=== PATIENT | female | born 1945 | race Caucasian/White ===

== ENCOUNTER → 2016-11-07 | Outpatient (CLI) | payer MEDICARE ==
--- NOTE | 2016-11-10 08:51 | MM ---
Reason for exam: screening (asymptomatic). Last mammogram was performed 1 year and 2 months ago. History: Patient is postmenopausal. Physical Findings: Nurse did not find any significant physical abnormalities on exam. MG Screening Mammo w CAD Bilateral CC and MLO view(s) were taken. Prior study comparison: September 11, 2015, bilateral MG screening mammo w CAD. November 15, 2012, bilateral digital screening mammo w/CAD. The breast tissue is heterogeneously dense. This may lower the sensitivity of mammography. Finding: There are typically benign vascular, round calcifications in both breasts. Asymmetric breast tissue in the right breast is stable. Grouped indeterminate calcifications in the right portion slight outer aspect. New finding and increase in number of calcifications since September 11, 2015 and November 15, 2012. ASSESSMENT: Incomplete: need additional imaging evaluation, BI-RAD 0 RECOMMENDATION: Special view mammogram of the right breast. If lesion persists on supplemental views, image directed ultrasound is recommended. [facility] will attempt to contact patient to return for supplemental views and ultrasound if indicated.
== END | disposition home or self-care (01) ==
LOC: RADMAMWWP 15:11
PROVIDERS: ATTEND Family Medicine
DX: Z12.31 Encounter for screening mammogram for malignant neoplasm of breast (principal)

== ENCOUNTER → 2016-11-12 | Outpatient (CLI) | payer MEDICARE ==
--- NOTE | 2016-11-12 08:19 | MM ---
Reason for exam: additional evaluation requested from abnormal screening. Last mammogram was performed less than 1 month ago. History: Patient is postmenopausal. Physical Findings: Nurse did not find any significant physical abnormalities on exam. MG Work Up Mamm w CAD RT CC and MLO view(s) were taken of the right breast. Prior study comparison: November 07, 2016, bilateral MG screening mammo w CAD. September 11, 2015, bilateral MG screening mammo w CAD. March 17, 2014, bilateral MG diagnostic mammo w CAD SARAH. The breast tissue is heterogeneously dense. This may lower the sensitivity of mammography. Small group of round appearing calcifications in the posterior lower outer quadrant. These can be reassessed at short interval follow up. These results were verbally communicated with the patient and result sheet given to the patient on 11/12/16. ASSESSMENT: Probably benign, BI-RAD 3 RECOMMENDATION: Follow-up diagnostic mammogram of the right breast in 6 months.
== END | disposition home or self-care (01) ==
LOC: RADMAMWWP 07:26
PROVIDERS: ATTEND Family Medicine
DX: R92.8 Other abnormal and inconclusive findings on diagnostic imaging of breast (principal)

== ENCOUNTER → 2017-11-25 | Outpatient (CLI) | payer MEDICARE ==
--- NOTE | 2017-11-25 11:39 | MM ---
Reason for exam: additional evaluation requested from prior study. Last mammogram was performed 1 year ago. History: Patient is postmenopausal. Physical Findings: Nurse did not find any significant physical abnormalities on exam. MG 3D Diag Mammo W/Cad SARAH Bilateral CC and MLO view(s) were taken. Prior study comparison: November 12, 2016, right breast MG work up mamm w CAD RT. November 07, 2016, bilateral MG screening mammo w CAD. The breast tissue is heterogeneously dense. This may lower the sensitivity of mammography. Finding: There is a 8 mm equal density (isodense), circumscribed round mass located 6 cm from the nipple in the upper outer quadrant, middle position of the left breast. Right breast stable. These results were verbally communicated with the patient and result sheet given to the patient on 11/25/17. ASSESSMENT: Incomplete: need additional imaging evaluation, BI-RAD 0 RECOMMENDATION: Ultrasound of the left breast.
--- NOTE | 2017-11-25 11:41 | USB ---
Reason for exam: additional evaluation requested from abnormal screening. History: Patient is postmenopausal. US Breast Limited LT Left limited breast ultrasound including focal area of concern, retroareolar and axilla demonstrates a 1.2 x 0.8 x 1.0cm oval, hypoechoic lesion at 2 o'clock, questionable lymph node, solid appearing. These results were verbally communicated with the patient and result sheet given to the patient on 11/25/17. ASSESSMENT: Suspicious, BI-RAD 4 RECOMMENDATION: Ultrasound core biopsy of the left breast. Called Dr. Argueta with mammographic findings and has scheduled an appointment for the patient for 12/03/17 at 10:[address] Buckley. Biopsy scheduled for 12/07/17 at 12:20. PRELIMINARY REPORT CALLED AND FAXED TO DR. BUCKLEY ON 11/25/17.
== END | disposition home or self-care (01) ==
LOC: RADMAMWWP 07:00
PROVIDERS: ATTEND Family Medicine
DX: R92.8 Other abnormal and inconclusive findings on diagnostic imaging of breast (principal)
CPT/HCPCS: 77066; 76642; G0279; 77062

== ENCOUNTER → 2017-12-03 | Outpatient (CLI) | payer MEDICARE ==
[2017-12-03 11:02] VITALS: BP 182/86; PULSE 83; BMI 23.8
--- NOTE | 2017-12-03 11:31 | P.GSHP ---
History of Present Illness H&P Date: 12/03/17 The patient is a 72-year-old white female who is status post mammogram of the breast on 11/25/2017 after which it was recommended she undergo an ultrasound of the left breast secondary to an area of concern noted in the mammogram. This was an 8 mm equal density circumscribed round mass 6 cm from the nipple in the upper outer quadrant middle position of the left breast. The right breast was felt to be stable. On ultrasound a 1.2 cm hypoechoic lesion was noted at 2: 00 this was questionably a lymph node an ultrasound core biopsy was recommended. The patient denies any dominant masses or nodules of concern in either breast. This was found on a routine mammogram. The patient has no nipple discharge or skin changes. The patient has not had any trauma to her breast. The patient has no complaints of any warmness or infection in the breast. family history: Maternal grandfather: Lung cancer he was a smoker Past surgical history: 1. tubaligation past medical history: 1. HTN Hormonal History: Menarche: 14 Pregnancies: For first at 23 did not breast feed Menopause: 55 control pills: Approximately 10 years Hormones:none Social Hisotry: smoke: none alcohol: occasional drugs: none - Constitutional Constitutional: Denies chills, Denies fever - EENT Eyes: denies blurred vision, denies pain Ears: deny: decreased hearing, tinnitus Ears, nose, mouth and throat: Denies headache, Denies sore throat - Breasts Breasts: bilateral: as per HPI - Cardiovascular Cardiovascular: Denies chest pain, Denies shortness of breath - Respiratory Respiratory: Denies cough, Denies 7 - Gastrointestinal Gastrointestinal: Denies abdominal pain, Denies diarrhea, Denies nausea, Denies vomiting - Genitourinary (Female) Genitourinary: Denies dysuria, Denies hematuria - Menstruation Menstruation: Reports postmenopausal - Musculoskeletal Musculoskeletal: Denies myalgias - Integumentary Integumentary: Denies pruritus, Denies rash - Neurological Neurological: Denies numbness, Denies weakness - Psychiatric Psychiatric: Denies anxiety, Denies depression - Endocrine Endocrine: Denies fatigue, Denies weight change - Hematologic/Lymphatic Comment: Baby aspirin - Allergic/Immunologic Comment: none Past Medical History Past Medical History: Hypertension History of Any Multi-Drug Resistant Organisms: None Reported Past Surgical History: Tubal Ligation Past Anesthesia/Blood Transfusion Reactions: No Reported Reaction Past Psychological History: No Psychological Hx Reported Smoking Status: Never smoker Past Alcohol Use History: None Reported Past Drug Use History: None Reported - Past Family History Mother Family Medical History: Hypertension Father Family Medical History: COPD Medications and Allergies Home Medications Medication Instructions Recorded Confirmed Type Aspirin [Children's Aspirin] 81 mg PO DAILY 12/02/17 12/03/17 History Lisinopril [Zestril] 5 mg PO DAILY 12/02/17 12/03/17 History Multivitamins, Thera [Multivitamin 1 tab PO DAILY 12/02/17 12/03/17 History (formulary)] Allergies Allergy/AdvReac Type Severity Reaction Status Date / Time No Known Allergies Allergy Verified 12/02/17 09:30 Surgical - Exam Vital Signs Pulse BP Pulse Ox 83 182/86 100 12/03/17 10:54 12/03/17 10:54 12/03/17 10:54 - General well developed, well nourished, no distress - Eyes normal ocular movement, no icteric - ENT no hearing loss, no congestion - Neck no masses, trachea midline - Respiratory normal respiratory effort, clear to auscultation - Cardiovascular Rhythm: regular Heart Sounds: normal: S1, S2 - Abdomen Abdomen: soft, non tender, no guarding, no rigid, no rebound - Neurologic no disoriented, no combative - Musculoskeletal normal gait, normal posture - Psychiatric oriented to time, oriented to person, oriented to place, speech is normal, memory intact breast examination: Right breast: Multiple positional exam no dominant masses or nodules of concern Right axilla: No adenopathy of concern Left breast: No dominant masses or nodules of concern of multiple positional exam Left axilla: No adenopathy of concern Results Results of mammogram and ultrasound reviewed Assessment and Plan Assessment: Impression: 1. Radiographic abnormality left breast this is nonpalpable 2. Hypertension Plan: 1. Ultrasound-guided core biopsy of area of concern in the left breast 2. Medical management of hypertension 3. Follow-up 1 week after ultrasound core biopsy of the left breast CC: Dr. Argueta
== END | disposition home or self-care (01) ==
LOC: WWCWWP 09:59
PROVIDERS: ATTEND Surgery
DX: Z53.9 Procedure and treatment not carried out, unspecified reason (principal)

== ENCOUNTER → 2017-12-07 | Day surgery (SDC) | payer MEDICARE ==
[2017-12-07 11:08] VITALS: RESP 16; TEMP 97.9; BMI 25.0
[2017-12-07 13:27] VITALS: BP 175/75; PULSE 93
--- NOTE | 2017-12-07 15:12 | USB ---
EXAMINATION TYPE: US biopsy breast VAD LT, Postbiopsy MG diagnostic mammo LT wo CAD DATE OF EXAM: 12/07/2017 CLINICAL HISTORY: 72-year-old female R92.8 ABN MAMMO. TECHNIQUE: Ultrasound guided core biopsy of left breast. COMPARISON: 11/25/2017 and 12/07/2017 FINDINGS: The procedure of ultrasound guided core biopsy was explained to the patient. Benefits, alt ernatives, and risks were discussed. An informed consent was then obtained. The patient was placed in supine positioning for imaging and for the procedure. The overlying skin w as prepped and draped in usual sterile fashion. Lidocaine buffered with bicarbonate was used as anes thetic into the skin and subcutaneous tissue up to area of concern in the 2:00 left breast. Under ultrasound guidance, a 13-gauge vacuum-assisted mammotome Elite biopsy gun device was used to o btain 5 core samples. Following this, a coil clip was left in lesion. Note that this was a solid lesion on biopsy. The patient tolerated the procedure well without any immediate complication. The patient was kept in the radiology department for short stay after the procedure and then discharged home in stable condi tion. Post procedure mammogram shows the coil clip at the site of 2:00 mammographic mass. IMPRESSION: Successful, uncomplicated ultrasound guided core biopsy of the 2:00 left breast mass; full pathology results to follow.
== END ==
LOC: RADUSWWP 10:50
PROVIDERS: ATTEND Surgery
DX: C50.412 Malignant neoplasm of upper-outer quadrant of left female breast (principal)
CPT/HCPCS: 77065; 19083; A4648; J2001; 88305; 88342

== ENCOUNTER → 2017-12-11 | Outpatient (CLI) | payer MEDICARE ==
[2017-12-11 09:21] VITALS: BP 172/70; PULSE 92; RESP 12; TEMP 98; BMI 24.1
--- NOTE | 2017-12-11 09:51 | P.PN ---
Progress Note - Text Progress Note Date: 12/11/17 The patient is a 72-year-old white female who is status post ultrasound-guided core biopsy of an area of concern in the left breast. Pathology revealed an infiltrating poorly differentiated adenocarcinoma grade 3. The lesion is in the 2 o'clock position of the left breast upper outer quadrant. It is believed to be a T1 N0 M0 lesion. ER/PA and HER-2/jessica status are pending. The patient has no complaints related to the procedure. Physical exam: Biopsy site clean and dry no evidence of infection or hematoma I have had a long discussion with the patient and her regarding treatment options. These include mastectomy with sentinel node biopsy possible axillary node dissection, versus lumpectomy sentinel node biopsy possible axillary node dissection. They have opted for a lumpectomy with a sentinel node biopsy possible axillary node dissection. The risk and benefits of the procedure been discussed with the patient and her . I discussed with them that if margins are positive and may be necessary to do a reexcision. They understand the risks and benefits and wished to proceed. Impression: 1. 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 History of hypertension Plan: 1. Left breast needle localization lumpectomy, sentinel node injection with sentinel node biopsy Cc: Dr. Carter
== END ==
LOC: WWCWWP 09:06
PROVIDERS: ATTEND Surgery
DX: Z53.9 Procedure and treatment not carried out, unspecified reason (principal)

== ENCOUNTER → 2017-12-29 | Day surgery (SDC) | payer MEDICARE ==
[2017-12-23 14:40] VITALS: BMI 21.9
[~2017-12-29] MED LIST: ALPRAZolam 0.5 MG TAB PO PRN; DEXAMETHASONE SOD PHOSPHATE 10 MG/ML 1 ML VIAL IV ONE; HEPARIN SODIUM,PORCINE 5,000 UNIT/ML 1 ML VIAL SQ ONE; HYDROmorphone (PF) 1 MG/ML ONE; LACTATED RINGERS 1,000 ML IV ONE; LACTATED RINGERS 1,000 ML IV SCH; LIDOCAINE 1% 20 ML VIAL (10MG/ML) FOR IV START INTRADERMA PRN; LIDOCAINE 1% INJ 10MG/ML (20 ML MDV) ONE; LIDOCAINE 1% INJ 10MG/ML (20 ML MDV) SQ ONE; MIDAZOLAM 2 MG/2 ML VIAL IV PRN; MIDAZOLAM 2 MG/2 ML VIAL ONE; ONDANSETRON 4 MG/2 ML VIAL IVP ONE; PROPOFOL 10 MG/ML 20 ML VIAL IV ONE; Pre Op ABX Message 1 EACH MISC MISCELLANE ONE; SODIUM BICARB 4% 5 ML VIAL (0.48 MEQ/ML) MISCELLANE ONE; SODIUM CHLORIDE 0.9% 50 ML with ceFAZolin 2,000 MG IV ONE; SUCCINYLCHOLINE CHLORIDE 100 MG/5 ML SYR IV ONE; ePHEDrine SULFATE/0.9% NACL/PF 50 MG/5 ML SYRINGE IV ONE; fentaNYL (PF) 50 MCG/ML 2 ML AMP IV PRN; fentaNYL (PF) 50 MCG/ML 2 ML AMP ONE
[2017-12-29 10:38] VITALS: RESP 16
--- NOTE | 2017-12-29 13:41 | NM ---
EXAMINATION TYPE: NM sentinel node injection DATE OF EXAM: 12/29/2017 COMPARISON: 12/07/2017 HISTORY: 72 year-old female with left breast cancer TECHNIQUE AND FINDINGS: The procedure of sentinel lymph node injection was explained to the patient. The benefits, alternatives, and risks were discussed. An informed consent was then obtained. Overlying skin is cleaned with sterile alcohol. Lidocaine buffered with bicarbonate was used as anes thetic into the skin and subcutaneous tissue surrounding the nipple. Following this, 526 uCi technet ium 99m Tilmanocept (Lymphoseek) was injected in the upper outer periareolar region. The patient tolerated the procedure well without any immediate complication. The patient was kept in the radiology department for short stay after the procedure and then taken to surgery for surgical p rocedure what is presumed intraoperative gamma probe will be used for sentinel lymph node detection. IMPRESSION: Left breast radiotracer injection for sentinel node localization as above.
--- NOTE | 2017-12-29 15:02 | P.OP ---
Date of Procedure: 12/29/17 Preoperative Diagnosis: Left breast cancer Postoperative Diagnosis: Same Procedure(s) Performed: Left breast sentinel node biopsy, needle localization lumpectomy with oncoplastic tissue transfer and placement of Biozorb Implants: Biozorb Anesthesia: ALINE Surgeon: Alina Buckley Estimated Blood Loss (ml): 10 IV fluids (ml): 500 Pathology: other ([place] node, lumpectomy tissue left breast) Condition: stable Disposition: PACU Indications for Procedure: Left breast cancer Operative Findings: The patient is a 72-year-old white female who underwent a core biopsy which was positive for malignancy in the left breast. She opted for a needle localization and lumpectomy, and sentinel node biopsy. The patient was taken to the operating room and the neoprobe was utilized to identify radioactivity in the left axilla. After we had identified this the left breast and axilla were prepped and draped in a sterile fashion. Secondary to the radioactivity blue dye was not injected. The axilla was approached initially. The area of increased radioactivity was identified and incision was made at the site. Careful dissection revealed a radioactive lymph node. The 10 second count on the lymph node was 17,147, the background count at 10 seconds was 28. No palpable adenopathy of concern was otherwise identified. The radioactive lymph node was sent for permanent section evaluation to pathology. Following this after assured that hemostasis was attained the deep tissues were closed using 3-0 Vicryl. The skin was closed closed using 4-0 Monocryl. The area of the breast was approached. An incision was made and carried down to the hook of the needle. Surrounding tissue was excised. The specimen was painted and sent for radiograph graphic evaluation. The clip was present in the specimen but they stated it was close to a margin. Therefore new margins were obtained. It should be noted that the posterior margin was onto the muscle of the chest wall. Anteriorly skin was taken. New medial lateral superior and inferior margins were obtained. The external margins of these new margins were painted for orientation. These were sent to pathology. The wound was irrigated and we were noted to have good hemostasis. The tissue was mobilized approximately 3 x 2 cm inferiorly and 3 x 2 cm superiorly. The wound was measured and a 2 x 3 [address] was chosen to place in the defect. This was placed and secured using 3-0 Vicryl suture. The tissue was closed over the biozorb. The subcutaneous tissue was closed using 3-0 Vicryl suture. The skin was closed using a 4-0 Monocryl. All instrument and sponge counts were correct at the end of the case. Patient tolerated procedure in stable condition.
--- NOTE | 2017-12-29 15:04 | P.NAPBC ---
NAPBC Queries - NAPBC Queries Was patient's case review presented at [facility] tumor board? If no, comment.: Yes Was patient's pathology reviewed at [facility]? If no, comment.: Yes Was breast conservation surgery offered? If no, comment.: Yes Was sentinel node biopsy offered? If no, comment.: Yes Was diagnosis confirmed by percutaneous core biopsy? If no, comment.: Yes If mastectomy patient, was a preop referral to a reconstructive surgeon offered? : No (not a mastectomy patient)
--- NOTE | 2017-12-29 15:06 | P.DS ---
Providers Attending physician: Alina Buckley Primary care physician: Ji Argueta Plan - Discharge Summary New Discharge Prescriptions: No Action Multivitamins, Thera [Multivitamin (formulary)] 1 tab PO QAM Lisinopril [Zestril] 5 mg PO QAM Aspirin [Children's Aspirin] 81 mg PO QAM Discharge Medication List Aspirin [Children's Aspirin] 81 mg PO QAM 12/02/17 [History] Lisinopril [Zestril] 5 mg PO QAM 12/02/17 [History] Multivitamins, Thera [Multivitamin (formulary)] 1 tab PO QAM 12/02/17 [History] Follow up Appointment(s)/Referral(s): Alina Buckley MD [STAFF PHYSICIAN] - 1 Week Activity/Diet/Wound Care/Special Instructions: Do not drive today patient may shower after 48 hours Wear bra at all times unless in shower until seen by DR. Hays Discharge Disposition: HOME SELF-CARE
[2017-12-29 15:20] VITALS: TEMP 97.3
[2017-12-29 17:03] VITALS: BP 150/85; PULSE 97
--- NOTE | 2017-12-29 17:30 | MM ---
EXAMINATION TYPE: MG pre op needle loc LT, MG surgical specimen LT DATE OF EXAM: 12/29/2017 COMPARISON: 12/07/2017 CLINICAL HISTORY: 72-year-old female abnormal mammogram, biopsy proven left breast cancer. TECHNIQUE: Needle localization with wire placement and surgical excision of area of concern in the left breast. FINDINGS: The procedure of needle localization with wire placement and than surgical excision was explained to the patient. Benefits, alternatives, and risks were discussed. An informed consent was then obtained. The shortest pathway for procedure was chosen. Shortest pathway was a lateral approach. The overlying skin was prepped and draped in usual sterile fashion. Lidocaine buffered with bicarbonate was used as anesthetic into the skin and subcutaneous tissue up to the level of area of concern. A 7 cm needle was used. It was placed via a lateral approach under mammographic guidance. Subsequent 90 degrees mammogram show the needle to be in satisfactory position relative to the targeted area. At this point, wire was placed and the needle was withdrawn. The wire was fixed to patient's skin. Images were marked for surgeon. The patient tolerated the procedure well without any immediate complication. The patient was kept in the radiology department for short stay after the procedure and then taken to surgery for surgical excision. Targeted clip and wire are identified in specimen mammogram. The clip is entirely included in the specimen though along the margin of the specimen rather than centrally located. The patient was kept in hospital for short stay after the procedure and then discharged home in stable condition. IMPRESSION: Successful, uncomplicated needle localization with wire placement and surgical excision of biopsy-proven left breast cancer. Full pathology results to follow. Pathology Results: Malignant A. SENTINEL LYMPH NODE, BIOPSY: Lymph node positive for micrometastasis. CK7 and PAUL immunoperoxidase stains are confirmatory (controls appropriate). B. AXILLARY CONTENTS: Lymph node positive for isolated tumor cells. C. BREAST, LEFT, LUMPECTOMY: Invasive poorly differentiated ductal carcinoma, margins negative for malignancy. See Surgical Pathology Cancer Case Summary. D. BREAST, LEFT, EXTERNAL SURFACE, INFERIOR, EXCISION: Focal atypical lobular hyperplasia (ALH). Proliferative fibrocystic changes including focal usual type ductal hyperplasia. Negative for malignancy. E. BREAST, LEFT, EXTERNAL SURFACE, MEDIAL, EXCISION: Benign breast with fibrocystic changes including focal usual type ductal hyperplasia. F. 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 See Surgical Pathology Cancer Case Summary and Comment. G. BREAST, LEFT, EXTERNAL SURFACE, LATERAL, EXCISION: Benign breast with fibrocystic changes. H. BREAST, LEFT, NEW ANTERIOR MARGIN, EXCISION: Benign skin and subcutaneous tissue. Recommendation Surgical consult of the left breast. ARAMISD
== END | disposition home or self-care (01) ==
LOC: OR 10:17
PROVIDERS: ATTEND Surgery
DX: D05.12 Intraductal carcinoma in situ of left breast (principal); N60.92 Unspecified benign mammary dysplasia of left breast; I10 Essential (primary) hypertension; Z79.82 Long term (current) use of aspirin; Z79.899 Other long term (current) drug therapy; Z80.1 Family history of malignant neoplasm of trachea, bronchus and lung
CPT/HCPCS: 88342; 88307; 88341; 76098; 19281; 38792; 19301; 38525; A4648; A9520; J2250; J1644; J1100; J2405; J2001; J3010; J1170; J0690; J0330; J2704

== ENCOUNTER → 2018-01-08 | Outpatient (CLI) | payer MEDICARE ==
[2018-01-08 09:39] VITALS: BMI 23.3
--- NOTE | 2018-01-08 10:46 | P.PN ---
Progress Note - Text Progress Note Date: 01/08/18 The patient is a 72-year-old white female who presents for postoperative evaluation status post right breast lumpectomy and sentinel node biopsy. Pathology revealed a stage [id number] ER positive, UT negative, HER-2 positive tumor, this is grade 3. The tumor was completely excised however at the superior margin there is DCIS noted less than 1 mm from superior margin, additionally there is micrometastatic disease in one of the lymph nodes. The patient would prefer no further surgical intervention if possible and I discussed with her that we will talk to radiation oncology and medical oncology and with their input determine if she can be treated without further surgical intervention. Physical exam: The patient has ecchymosis of the lateral aspect of the breast with some ecchymosis at the midline sternal area which appears to be related to drapes placed at the time of surgery No evidence of infection No evidence of intraparenchymal hematoma Incision line areas appear to be clean and dry Lungs: Clear Heart: Regular rate and rhythm Impression: [id number] grade 3, ER positive, UT negative, HER-2 positive right breast cancer treated with lumpectomy and sentinel node biopsy 2. Patient would prefer no further surgical intervention if possible we'll discuss with radiation and medical oncology 3. Ecchymosis resolving Plan: 1. A point with medical oncology 2. Premarin with radiation oncology 3. Follow-up in 2 weeks CC:DR. Argueta
== END | disposition home or self-care (01) ==
LOC: WWCWWP 09:12
PROVIDERS: ATTEND Surgery
DX: Z53.9 Procedure and treatment not carried out, unspecified reason (principal)

== ENCOUNTER → 2018-01-22 | Outpatient (CLI) | payer MEDICARE ==
[2018-01-22 08:58] VITALS: BP 130/74; PULSE 85; RESP 12; TEMP 98.1; BMI 23.3
--- NOTE | 2018-01-22 09:44 | P.PN ---
Progress Note - Text Progress Note Date: 01/22/18 The patient is a 72-year-old white female status post left breast lumpectomy and sentinel node biopsy. Pathology revealed a stage [id number] ER positive, WI negative, HER-2 positive tumor which was grade 3. The tumor was completely excised however at the superior margin there was DCIS noted less than 1 mm from the superior margin. Additionally there was micrometastatic disease in one of the lymph nodes. The patient was seen by medical oncology and radiation oncology. Both feel that she does not need further surgical intervention. The patient is recommended from medical oncology to receive chemotherapy, immunotherapy, and hormonal therapy. Additionally she will need radiation therapy. The patient did develop some ecchymosis following her operative procedure which is resolving. The patient has no complaints at this time. Physical exam: Lungs: Clear Heart: Regular rate and rhythm Examination of the left breast resolving ecchymosis, some fullness in the upper outer quadrant area may be related to hematoma versus the Biozorb Impression: 1. [id number] ER+,WI-,HER2 -, Grade 3 right breast cancer, recommended by medical oncology to undergo chemotherapy, immunotherapy, and hormonal therapy 2. Patient to undergo radiation therapy 3. No need for further surgical resection at this time 4. Patient will need Mediport placement 5. Patient to follow up here in 3-4 months time CC: Dr. Argueta
== END ==
LOC: WWCWWP 08:30
PROVIDERS: ATTEND Surgery
DX: Z53.9 Procedure and treatment not carried out, unspecified reason (principal)

== ENCOUNTER → 2018-02-01 | Outpatient (CLI) | payer MEDICARE ==
--- NOTE | 2018-02-01 12:08 | ECHOF ---
Referral Reason:C50.412 Breast Ca / Z01.818 Pre chemo MEASUREMENTS -------- HEIGHT: 167.6 cm WEIGHT: 64.9 kg BP: IVSd: 1.1 cm (0.6 - 1.1) LVIDd: 3.1 cm (3.9 - 5.3) LVPWd: 1.1 cm (0.6 - 1.1) IVSs: 1.2 cm LVIDs: 1.7 cm LVPWs: 1.2 cm LAESV Index (A-L): 23.39 ml/m Ao Diam: 3.0 cm (2.0 - 3.7) AV Cusp: 2.2 cm (1.5 - 2.6) LA Diam: 2.3 cm (2.7 - 3.8) MV E Hiram: 0.71 m/s MV DecT: 229 ms MV A Hiram: 0.70 m/s MV E/A Ratio: 1.02 RAP: 5.00 mmHg RVSP: 10.60 mmHg FINDINGS -------- Sinus rhythm. This was a technically adequate study. The left ventricular size is normal. There is borderline concentric left ventricular hypertrophy. Overall left ventricular systolic function is normal with, an EF between 55 - 60 %. The right ventricle is normal in size and function. Normal LA size by volume 22+/-6 ml/m2. The right atrium is normal in size. The aortic valve is trileaflet, and appears structurally normal. No aortic stenosis or regurgitation. Mild mitral annular calcification present. Mild mitral regurgitation is present. Mild tricuspid regurgitation present. Right ventricular systolic pressure is normal at < 35 mmHg. There is no evidence of pulmonary hypertension. The pulmonic valve was not well visualized. There is no pulmonic regurgitation present. The aortic root size is normal. Normal inferior vena cava with normal inspiratory collapse consistent with estimated right atrial pre ssure of 5 mmHg. There is no pericardial effusion. CONCLUSIONS -------- 1. Sinus rhythm. 2. This was a technically adequate study. 3. The left ventricular size is normal. 4. There is borderline concentric left ventricular hypertrophy. 5. Overall left ventricular systolic function is normal with, an EF between 55 - 60 %. 6. Normal LA size by volume 22+/-6 ml/m2. 7. The aortic valve is trileaflet, and appears structurally normal. No aortic stenosis or regurgitati on. 8. Mild mitral annular calcification present. 9. Mild mitral regurgitation is present. 10. Mild tricuspid regurgitation present. 11. Right ventricular systolic pressure is normal at < 35 mmHg. 12. The pulmonic valve was not well visualized. 13. There is no pulmonic regurgitation present. 14. The aortic root size is normal. 15. There is no pericardial effusion. MEDICAL STAFF SERVICES MANAGER: Ascencion Coley RDCS
== END | disposition home or self-care (01) ==
LOC: RADECHMAIN 10:29
PROVIDERS: ATTEND Internal Medicine Hematology & Oncology
DX: Z01.818 Encounter for other preprocedural examination (principal); I08.1 Rheumatic disorders of both mitral and tricuspid valves; C50.412 Malignant neoplasm of upper-outer quadrant of left female breast
CPT/HCPCS: 93306

== ENCOUNTER 2018-02-11 11:21 | Day surgery (SDC) | payer MEDICARE ==
[2018-02-05 09:52] VITALS: BMI 22.4
--- NOTE | 2018-02-11 11:11 | P.GSHP ---
History of Present Illness H&P Date: 02/11/18 CHIEF COMPLAINT: Chemotherapy HISTORY OF PRESENT ILLNESS: The patient is a 72-year-old female who needs a Mediport placement for chemotherapy. PAST MEDICAL HISTORY: See list PAST SURGICAL HISTORY: See list CURRENT MEDICATIONS: See list. ALLERGIES: See list. SOCIAL HISTORY: No active tobacco or alcohol use. FAMILY HISTORY: Noncontributory. REVIEW OF ORGAN SYSTEMS: CONSTITUTIONAL: Has weight loss. PHYSICAL EXAMINATION: Vital signs: Stable GENERAL: Well developed and in no acute distress. Pleasant. HEENT: No sclera icterus. Extraocular movements grossly intact. Moist buccal mucosa. Head is atraumatic, normocephalic. Hears conversational speech. No nasal drainage. NECK: Supple without lymphadenopathy. No JV distention. CHEST: Non-labored respirations and equal bilateral excursions. CARDIOVASCULAR: Regular rate and rhythm. Palpable 2+ radial pulses. ABDOMEN: Nontender. MUSCULOSKELETAL: No clubbing, cyanosis or edema. NEUROLOGIC: No focal or lateralizing signs. PSYCH: Appropriate affect. Alert and oriented to person, place and time. ASSESSMENT: 1. Need for chemotherapeutic access. PLAN: 1. Agree with Port-A-Cath placement. Past Medical History Past Medical History: Cancer, Hypertension Additional Past Medical History / Comment(s): Abnormal jessica, taking antbx. for an infected tooth. History of Any Multi-Drug Resistant Organisms: None Reported Past Surgical History: Tonsillectomy, Tubal Ligation Additional Past Surgical History / Comment(s): Colonoscopy, lumpectomy on L side. Past Anesthesia/Blood Transfusion Reactions: No Reported Reaction Smoking Status: Never smoker - Past Family History Mother Family Medical History: Hypertension Father Family Medical History: COPD Medications and Allergies Home Medications Medication Instructions Recorded Confirmed Type Aspirin [Children's Aspirin] 81 mg PO QAM 12/02/17 02/05/18 History Lisinopril [Zestril] 5 mg PO QAM 12/02/17 02/05/18 History Multivitamins, Thera [Multivitamin 1 tab PO QAM 12/02/17 02/05/18 History (formulary)] Penicillin G 500 units PO QID 02/05/18 02/05/18 History Allergies Allergy/AdvReac Type Severity Reaction Status Date / Time No Known Allergies Allergy Verified 02/05/18 09:31
[~2018-02-11 11:21] MED LIST changes: -ALPRAZolam 0.5 MG TAB PO PRN; -HEPARIN SODIUM,PORCINE 5,000 UNIT/ML 1 ML VIAL SQ ONE; -HYDROmorphone (PF) 1 MG/ML ONE; +HYDROmorphone 0.5 MG/0.5 ML SYRINGE IVP PRN; -LACTATED RINGERS 1,000 ML IV ONE; -LIDOCAINE 1% 20 ML VIAL (10MG/ML) FOR IV START INTRADERMA PRN; -LIDOCAINE 1% INJ 10MG/ML (20 ML MDV) ONE; -LIDOCAINE 1% INJ 10MG/ML (20 ML MDV) SQ ONE; -MIDAZOLAM 2 MG/2 ML VIAL ONE; -PROPOFOL 10 MG/ML 20 ML VIAL IV ONE; -SODIUM BICARB 4% 5 ML VIAL (0.48 MEQ/ML) MISCELLANE ONE; -SODIUM CHLORIDE 0.9% 50 ML with ceFAZolin 2,000 MG IV ONE; -SUCCINYLCHOLINE CHLORIDE 100 MG/5 ML SYR IV ONE; -ePHEDrine SULFATE/0.9% NACL/PF 50 MG/5 ML SYRINGE IV ONE; -fentaNYL (PF) 50 MCG/ML 2 ML AMP IV PRN; -fentaNYL (PF) 50 MCG/ML 2 ML AMP ONE
[2018-02-11 11:42] VITALS: RESP 18; TEMP 98.3
[2018-02-11] MEDS ORDERED: ceFAZolin IN SWFI 2 GM/20 ML SYRINGE IVP STA (11:48)
[2018-02-11] MEDS ORDERED: LIDOCAINE 1% 20 ML VIAL (10MG/ML) FOR IV START INTRADERMA ONE (11:50)
[2018-02-11] MEDS ORDERED: LIDOCAINE 1% INJ 10MG/ML (20 ML MDV) ONE (13:09)
[2018-02-11] MEDS ORDERED: MIDAZOLAM 2 MG/2 ML VIAL ONE (13:09)
[2018-02-11] MEDS ORDERED: PROPOFOL 10 MG/ML 20 ML VIAL IV ONE (13:09)
[2018-02-11] MEDS ORDERED: fentaNYL (PF) 50 MCG/ML 2 ML AMP ONE (13:09)
[2018-02-11] MEDS ORDERED: HEPARIN SODIUM,PORCINE 100 UNIT/ML 5 ML VIAL IV ONE ×3 (13:29→13:52)
[2018-02-11] MEDS ORDERED: BUPIVACAIN-EPI 0.5%-1:200,000 30 ML VIAL SQ ONE ×2 (13:34→13:52)
[2018-02-11] MEDS ORDERED: HEPARIN SODIUM,PORCINE 10,000 UNIT/ML 1 ML VIAL IV ONE (13:58)
--- NOTE | 2018-02-11 14:20 | P.PCN ---
Date of Procedure: 02/11/18 Description of Procedure: SURGEON: NELSON THAKKAR MD MIG WELDER: None. PREOPERATIVE DIAGNOSES: 1. Breast cancer 2. Need for chemotherapeutic access. POSTOPERATIVE DIAGNOSES: 1. Breast cancer 2. Need for chemotherapeutic access. PROCEDURES PERFORMED: 1. Ultrasound guided central venous access of the right internal jugular venous vein. 2. Fluoroscopic guidance for central venous access right internal jugular vein, 3 seconds. 3. Placement of right internal jugular power port 6 Chinese by AngioFanbouts, Xcela Plus Port ANESTHESIA: IV sedation with local. ESTIMATED BLOOD LOSS: 5 mL. SPECIMENS REMOVED: None. COMPLICATIONS: None. INDICATIONS: The patient is a 72-year-old female recently diagnosed with breast cancer She presents for chemotherapeutic access. Benefits and risks of surgical intervention were described including bleeding, infection, mechanical problems with his port. Informed consent was obtained. DESCRIPTION OR PROCEDURE: Patient was brought into the operating room, laid in supine position. After adequate IV sedation, the chest and right neck were prepped and draped in a standard sterile fashion including the shoulder with ChloraPrep. Timeout protocol was confirmed with the surgical team regarding the patient's name, procedure to be performed including preoperative medications for which she received IV antibiotics. Bilateral SCDs were placed. An ultrasound was used to capture views of the right internal jugular vein including right carotid artery, which was patent and without thrombus along its course. The right IJ was then localized using anesthetic for the skin. A 16 Chinese needle was used to access the IJ. A guidewire was advanced into the IJ with dark nonpulsatile venous blood. Two fingerbreadths distal to the clavicle, on the lateral third, a transverse 1.5 to 2 cm incision was deepened into the skin after localizing the skin. A pocket was created for the port. The port on the back table was flushed with heparinized saline and then attached to the catheter tubing. An adapter was fastened to the actual port site over the tubing. The port easily had fit snug into the pocket. A subcutaneous tunneler was placed along the open end of the tubing and brought out through the separate stab incision. Fluoroscopic guidance confirmed no kinking along the tubing and the port site. Next, the J-wire was exchanged for a catheter sheath for which the tubing was cut to 20 cm and then advanced through the catheter sheath. The Peel-away sheath was then removed and the tubing was secured at the junction of the superior vena cava as well as the right atrium. The tubing was found to be crossed however functional. This was all done under fluoroscopic guidance under 3 seconds. Easy pullback as well as return and aspiration was obtained of the port site. The skin incision was closed using layers using 3-0 Vicryl for the subcu followed by 4-0 Monocryl in a running subcuticular fashion. At the stick site this was also reapproximated using 4-0 Monocryl. The incisions were covered with Optifoam, The skin was cleansed and Exofin liquid glue was applied. Optifoam dressing was placed over the port site. A total of 20 mL of local anesthetic was placed. At the end of the procedure, needle, sponge, and instrument count was verified correct by surgical lead. Heparin lock of 5 mL was placed. The patient was awoken and pain free and taken to the second stage postanesthesia care unit. The patient tolerated the procedure well. FINDINGS: 1. No thrombus encountered along the right carotid artery or internal jugular vein. 2. Access of the right internal jugular vein under ultrasound guidance. 3. Fluoroscopy of less than 3 seconds. Plan - Discharge Summary New Discharge Prescriptions: No Action Multivitamins, Thera [Multivitamin (formulary)] 1 tab PO QAM Lisinopril [Zestril] 5 mg PO QAM Aspirin [Children's Aspirin] 81 mg PO QAM Penicillin G 500 units PO QID Discharge Medication List Aspirin [Children's Aspirin] 81 mg PO QAM 12/02/17 [History] Lisinopril [Zestril] 5 mg PO QAM 12/02/17 [History] Multivitamins, Thera [Multivitamin (formulary)] 1 tab PO QAM 12/02/17 [History] Penicillin G 500 units PO QID 02/05/18 [History]
[2018-02-11 14:34] VITALS: BP 150/78; PULSE 90
--- NOTE | 2018-02-11 14:35 | XR ---
EXAMINATION TYPE: XR chest 1V, FL guided central line placemt DATE OF EXAM: 02/11/2018 COMPARISON: NONE HISTORY: Post Port-A-Cath placement. TECHNIQUE: Single frontal view of the chest is obtained. FINDINGS: New right-sided Port-A-Cath has been placed terminating in the distal superior vena cava. No postprocedural pneumothorax is seen. Left-sided surgical clips overlie the left hemithorax. Strand -like left basilar atelectasis is noted. Mediastinal rotation is secondary to patient positioning. Os seous structures are grossly intact. Fluoroscopic guidance was provided during procedure performed by Dr. Salter. A total of 3 seconds of fluoroscopic time was utilized during the procedure and 1 spot images was acquired. IMPRESSION: New right-sided Port-A-Cath insertion terminating in the distal superior vena cava.
== END 2018-02-11 15:01 | disposition home or self-care (01) ==
LOC: OR 11:21
PROVIDERS: ATTEND Surgery Plastic and Reconstructive Surgery
DX: C50.919 Malignant neoplasm of unspecified site of unspecified female breast (principal); I10 Essential (primary) hypertension; Z79.82 Long term (current) use of aspirin; Z79.899 Other long term (current) drug therapy; Z98.51 Tubal ligation status
CPT/HCPCS: 77001; 71045; 36561; C1788; J2250; J1644; J1642; J1100; J2405; J2001; J3010; J2704; J0690

== ENCOUNTER → 2018-05-13 | Outpatient (CLI) | payer MEDICARE ==
[2018-05-13 15:17] VITALS: BP 182/78; PULSE 90; RESP 18; BMI 23.5
--- NOTE | 2018-05-13 15:46 | P.PN ---
Subjective Progress Note Date: 05/13/18 Melinda is a 73-year-old white female who is status post left breast lumpectomy and sentinel node biopsy. Pathology revealed a T1b N1mi M0 ER positive CT negative HER-2 positive tumor which was grade 3. She has completed chemotherapy. She continues to receive Herceptin. She will start radiation therapy next week. She is doing well at this time. She does complain of some numbness in her fingers and a rash over her face which she believes is related to the chemotherapy. She has no complaints related to her breast. Objective - Vital Signs Vital signs: Vital Signs Temp Pulse 90 05/13/18 15:04 Resp 18 05/13/18 15:04 BP 182/78 05/13/18 15:04 Pulse Ox 99 05/13/18 15:04 Intake & Output 05/12/18 05/13/18 05/13/18 18:59 06:59 18:59 Weight 68.039 kg - Exam BMI 23.5 - Constitutional General appearance: Present: average body habitus, cooperative - EENT Eyes: Present: EOMI ENT: Present: hearing grossly normal - Neck Neck: Present: normal ROM - Respiratory Respiratory: bilateral: CTA - Cardiovascular Rhythm: regular Heart sounds: normal: S1, S2 - Gastrointestinal General gastrointestinal: Present: soft - Integumentary Integumentary Comment(s): Rash over the left cheek - Musculoskeletal Musculoskeletal: Present: gait normal - Psychiatric Psychiatric: Present: A&O x's 3, appropriate affect - Additional findings Additional findings: Breast examination: Right breast: Multi-positional exam no dominant masses or nodules of concern Right axilla: No adenopathy of concern Left breast: Incision clean and dry well-healed the Biozorb is palpable there is no mass of concern a multi-positional exam Left axilla: No adenopathy of concern Assessment and Plan Assessment: Impression: 1. [id number] ER+, CT-, HER2/jessica +grade 3 right breast cancer status post lumpectomy, sentinel node biopsy, chemotherapy, can continuing immunotherapy, and will start radiation therapy, and hormonal therapy following the radiation therapy. 2. No evidence of recurrent disease Plan: 1. Start radiation therapy next week 2. Continue immune therapy 3. Hormonal therapy following the radiation therapy 4. Follow-up here in 4 months CC: Dr. Argueta
== END ==
LOC: WWCWWP 14:04
PROVIDERS: ATTEND Surgery
DX: Z53.9 Procedure and treatment not carried out, unspecified reason (principal)

== ENCOUNTER → 2018-05-31 | Outpatient (CLI) | payer MEDICARE ==
--- NOTE | 2018-05-31 09:26 | ECHOF ---
Referral Reason:Z01.818 chemo C50.412 Breast CA MEASUREMENTS -------- HEIGHT: 167.6 cm WEIGHT: 68.0 kg BP: IVSd: 1.1 cm (0.6 - 1.1) LVIDd: 3.9 cm (3.9 - 5.3) LVPWd: 0.9 cm (0.6 - 1.1) IVSs: 1.5 cm LVIDs: 2.6 cm LVPWs: 1.7 cm LAESV Index (A-L): 29.30 ml/m Ao Diam: 3.0 cm (2.0 - 3.7) AV Cusp: 2.5 cm (1.5 - 2.6) LA Diam: 2.2 cm (2.7 - 3.8) MV EXCURSION: 19.089 mm (> 18.000) MV EF SLOPE: 188 mm/s (70 - 150) EPSS: 0.5 cm MV E Hiram: 0.82 m/s MV DecT: 206 ms MV A Hiram: 0.69 m/s MV E/A Ratio: 1.19 RAP: 5.00 mmHg RVSP: 25.08 mmHg FINDINGS -------- Sinus rhythm with extra systolic beats. This was a technically good study. The left ventricular size is normal. Left ventricular wall thickness is normal. Overall left vent ricular systolic function is normal with, an EF between 55 - 60 %. The right ventricle is normal in size and function. LA is midly dilated 29-33ml/m2. The right atrium is normal in size. Aneurysmal Interatrial septum. The aortic valve is trileaflet, and appears structurally normal. No aortic stenosis or regurgitation. Sqmi-li-aoeyjtgn mitral regurgitation is present. Trace tricuspid regurgitation present. The right ventricular systolic pressure, as measured by Dopp ler, is 25.08mmHg. The pulmonic valve was not well visualized. The aortic root size is normal. Normal inferior vena cava with normal inspiratory collapse consistent with estimated right atrial pre ssure of 5 mmHg. Echo free space indicative of a pericardial fat pad. CONCLUSIONS -------- 1. Sinus rhythm with extra systolic beats. 2. This was a technically good study. 3. The left ventricular size is normal. 4. Left ventricular wall thickness is normal. 5. Overall left ventricular systolic function is normal with, an EF between 55 - 60 %. 6. The right ventricle is normal in size and function. 7. LA is midly dilated 29-33ml/m2. 8. The right atrium is normal in size. 9. Aneurysmal Interatrial septum. 10. The aortic valve is trileaflet, and appears structurally normal. No aortic stenosis or regurgitat ion. 11. Clag-nx-eoksxhxw mitral regurgitation is present. 12. Trace tricuspid regurgitation present. 13. The right ventricular systolic pressure, as measured by Doppler, is 25.08mmHg. 14. The pulmonic valve was not well visualized. 15. The aortic root size is normal. 16. Normal inferior vena cava with normal inspiratory collapse consistent with estimated right atrial pressure of 5 mmHg. 17. Echo free space indicative of a pericardial fat pad. HEAT TRANSFER TECHNICIAN: Karla Junior RDCS
== END ==
LOC: RADECHMAIN 08:00
PROVIDERS: ATTEND Internal Medicine Hematology & Oncology
DX: I34.0 Nonrheumatic mitral (valve) insufficiency (principal); Q21.1 Atrial septal defect
CPT/HCPCS: 93306

== ENCOUNTER → 2018-07-09 | Outpatient (CLI) | payer MEDICARE ==
--- NOTE | 2018-07-09 09:12 | BD ---
EXAMINATION TYPE: Axial Bone Density DATE OF EXAM: 07/09/2018 COMPARISON: NONE CLINICAL HISTORY: Height: 66 Weight: 145.9 FRAX RISK QUESTIONS: Alcohol (3 or more units per day): no Family History (Parent hip fracture): no Glucocorticoids (More than 3mos): no (Ex: prednisone, prednisolone, methylprednisolone, dexamethasone, and hydrocortisone). History of Fracture in Adulthood: yes Secondary Osteoporosis: 1. Type 1 Diabetes: no 2. Hyperthyroidism: no 3. Menopause before 45: no 4. Malnutrition: no 5. Chronic liver disease: no Rheumatoid Arthritis: no Current Tobacco Use: no RISK FACTORS HISTORY OF: Family History of Osteoporosis: no Active: yes Diet low in dairy products/other sources of calcium: no Postmenopausal woman: age 57 Lost more than 2 inches in height since high school: no MEDICATIONS: hormone junior for breast cancer, lisinopril, vitamins, baby aspirin Additional History: pt has breast cancer EXAM MEASUREMENTS: Bone mineral densitometry was performed using the Infectious System. Bone mineral density as measured about the Lumbar spine is: ----- L1-L4(G/cm2): 1.101 T Score Values are as follows: ----- L2: -1.1 ----- L3: -0.8 ----- L4: -0.7 ----- L1-L4: -0.7 Bone mineral density has: decreased -10.0 % since study of: 11.13.2015 Bone mineral density about the R hip (g/cm2): 0.746 Bone mineral density about the L hip (g/cm2): 0.837 T Score values are as follows: -----R Neck: -2.1 -----L Neck: -1.4 -----R Total: -2.2 -----L Total: -1.6 Bone mineral density has: decreased -5.3 % since study of: 11.13.2015 IMPRESSION: Findings compatible with osteopenia NOTE: T-SCORE=SD OF THE YOUNG ADULT MEAN.
== END | disposition home or self-care (01) ==
LOC: RADBDWWP 07:00
PROVIDERS: ATTEND Internal Medicine Hematology & Oncology
DX: M85.80 Other specified disorders of bone density and structure, unspecified site (principal); C50.412 Malignant neoplasm of upper-outer quadrant of left female breast; Z79.890 Hormone replacement therapy
CPT/HCPCS: 77080

== ENCOUNTER 2018-09-09 10:18 | Day surgery (SDC) | payer MEDICARE ==
[2018-09-07 08:30] VITALS: BMI 23.7
[~2018-09-09 10:18] MED LIST changes: +LIDOCAINE 1% 20 ML VIAL (10MG/ML) FOR IV START INTRADERMA PRN; +MIDAZOLAM (PF) 2 MG/2 ML VIAL IV PRN; -MIDAZOLAM 2 MG/2 ML VIAL IV PRN; +SCOPOLAMINE 1.5MG/72HR PATCH TRANSDERM ONE
[2018-09-09] MEDS ORDERED: ceFAZolin IN SWFI 2 GM/20 ML SYRINGE IVP ONE (10:59)
--- NOTE | 2018-09-09 10:59 | P.GSHP ---
History of Present Illness H&P Date: 09/09/18 CHIEF COMPLAINT: Breast cancer. HISTORY OF PRESENT ILLNESS: The patient is a 73-year-old female diagnosed with invasive breast cancer. She had a Mediport placement. She presents for Port-A-Cath removal upon completion of her chemotherapy. PAST MEDICAL HISTORY: Breast cancer. PAST SURGICAL HISTORY: Breast biopsy. CURRENT MEDICATIONS: See list. ALLERGIES: See list. SOCIAL HISTORY: No active tobacco or alcohol use. FAMILY HISTORY: Noncontributory. REVIEW OF ORGAN SYSTEMS: CONSTITUTIONAL: Denies any fever or chills. Denies recent weight loss or weight gain. HEENT: Denies any trouble with vision, hearing or nosebleeds. No difficulty swallowing. BREASTS: Please see above. PHYSICAL EXAMINATION: Vital signs: Stable GENERAL: Well developed female and in no acute distress. Pleasant. HEENT: No sclera icterus. Extraocular movements grossly intact. Moist buccal mucosa. Head is atraumatic, normocephalic. Hears conversational speech. No nasal drainage. NECK: Supple without lymphadenopathy. No JV distention. CHEST: Non-labored respirations and equal bilateral excursions. CARDIOVASCULAR: Regular rate and rhythm. Palpable 2+ radial pulses. ABDOMEN: Nontender. MUSCULOSKELETAL: No clubbing, cyanosis or edema. NEUROLOGIC: No focal or lateralizing signs. PSYCH: Appropriate affect. Alert and oriented to person, place and time. ASSESSMENT: 1. Breast cancer. 2. Need for chemotherapeutic access. PLAN: 1. Agree with Port-A-Cath removal per patient's request. Past Medical History Past Medical History: Cancer, Hypertension Additional Past Medical History / Comment(s): breast cancer with chemo last dose 04/20. continues with herceptin, port a cath rt upper chest History of Any Multi-Drug Resistant Organisms: None Reported Past Surgical History: Tubal Ligation Additional Past Surgical History / Comment(s): Colonoscopy, lt breast lumpectomy Past Anesthesia/Blood Transfusion Reactions: No Reported Reaction Smoking Status: Never smoker - Past Family History Mother Family Medical History: Hypertension Father Family Medical History: COPD Medications and Allergies Home Medications Medication Instructions Recorded Confirmed Type Lisinopril [Zestril] 5 mg PO QAM 12/02/17 09/07/18 History Multivitamins, Thera [Multivitamin 1 tab PO QAM 12/02/17 09/07/18 History (formulary)] Aspirin [Adult Low Dose Aspirin EC] 81 mg PO DAILY 09/07/18 09/07/18 History Herceptin (Unknown Dose) 1 dose IV Q21D 09/07/18 09/07/18 History Letrozole 2.5 mg PO DAILY 09/07/18 09/07/18 History Risedronate Sodium [Actonel] 35 mg PO SA 09/07/18 09/07/18 History Allergies Allergy/AdvReac Type Severity Reaction Status Date / Time No Known Allergies Allergy Verified 09/07/18 08:21
[2018-09-09 11:03] VITALS: TEMP 97
[2018-09-09] MEDS ORDERED: BUPIVACAINE-EPI 0.5%-1:200,000 10 ML VIAL SQ ONE ×3 (11:59→12:27)
[2018-09-09] MEDS ORDERED: fentaNYL (PF) 50 MCG/ML 2 ML AMP ONE (12:05)
[2018-09-09] MEDS ORDERED: LIDOCAINE 1% INJ 10MG/ML (20 ML MDV) ONE (12:05)
[2018-09-09] MEDS ORDERED: PROPOFOL 10 MG/ML 20 ML VIAL IV ONE (12:05)
--- NOTE | 2018-09-09 12:45 | P.OP ---
Date of Procedure: 09/09/18 Description of Procedure: SURGEON: LACEY NAYLOR MD WEB MACHINE TENDER: None. PREOPERATIVE DIAGNOSIS: 1. Breast cancer 2. Chemotherapeutic venous access. POSTOPERATIVE DIAGNOSIS: 1. Breast cancer 2. Chemotherapeutic venous access. OPERATION: Removal of right internal jugular vein Port-A-Cath. ANESTHESIA: MAC with 30 mL local ESTIMATED BLOOD LOSS: 1 mL SPECIMENS REMOVED: Port-A-Cath COMPLICATIONS: None. INDICATIONS: The patient is a 73-year-old female who completed chemotherapy for breast cancer. She now has elected for removal. Benefits and risks were described. Informed consent was obtained. DESCRIPTION OF PROCEDURE: Patient was brought to the operating room, laid in supine position. After IV sedation the chest wall on the left side was prepped and draped in standard sterile fashion. Prior to incision, a timeout protocol was confirmed with surgical team regarding the patient's name including procedures to be performed. As this was a clean case, no further antibiotics were required. Additionally, early ambulation was encouraged for DVT prophylaxis. Attention was brought to the area of the port site, whereby a total of 30 mL of local was infiltrated into the skin for a field block. A #15 blade was used to incise along the previous cicatrix. Electro- Bovie cautery was used to control for hemostasis. Adhesions were lysed around the Mediport. The port was extracted without sequelae. Pressure for 2 minutes was placed along the internal jugular vein. Hemostasis was checked along the pocket of the Port-A-Cath site. The wound was closed in layers using 3-0 Vicryl for the deep subcutaneous tissues followed by 4-0 Monocryl in a running subcuticular fashion. Dermabond was applied to the skin. Once dried a 4 x 4 Optifoam was applied. At the end of the procedure needle, sponge and instrument counts were verified correct by the certified surgical first assistant. The patient had tolerated the procedure well and was taken to postanesthesia care in stable condition. FINDINGS: 1. Unremarkable Port-a-cath extraction. Plan - Discharge Summary Discharge Rx Participant: Yes New Discharge Prescriptions: Continue Lisinopril [Zestril] 5 mg PO QAM Risedronate Sodium [Actonel] 35 mg PO SA Letrozole 2.5 mg PO DAILY Herceptin (Unknown Dose) 1 dose IV Q21D Aspirin [Adult Low Dose Aspirin EC] 81 mg PO DAILY Discontinued Multivitamins, Thera [Multivitamin (formulary)] 1 tab PO QAM Discharge Medication List Lisinopril [Zestril] 5 mg PO QAM 12/02/17 [History] Aspirin [Adult Low Dose Aspirin EC] 81 mg PO DAILY 09/07/18 [History] Herceptin (Unknown Dose) 1 dose IV Q21D 09/07/18 [History] Letrozole 2.5 mg PO DAILY 09/07/18 [History] Risedronate Sodium [Actonel] 35 mg PO SA 09/07/18 [History] Follow up Appointment(s)/Referral(s): Lacey Naylor MD [STAFF PHYSICIAN] - As Needed Patient Instructions/Handouts: Removal of Implantable Cardioverter Defibrillator (DC) Activity/Diet/Wound Care/Special Instructions: Sleep on 2 to 3 pillow elevation for 3 days. Expect bruising as this should resolve in 3 weeks. May take Tylenol for pain. Remove dressing 09/11/18. Discharge Disposition: HOME SELF-CARE
[2018-09-09 12:46] VITALS: RESP 18
[2018-09-09 12:55] VITALS: PULSE 87
[2018-09-09 13:20] VITALS: BP 128/70
== END 2018-09-09 13:20 | disposition home or self-care (01) ==
LOC: OR 10:18
PROVIDERS: ATTEND Surgery Plastic and Reconstructive Surgery
DX: Z45.2 Encounter for adjustment and management of vascular access device (principal); C50.919 Malignant neoplasm of unspecified site of unspecified female breast; I10 Essential (primary) hypertension; Z79.811 Long term (current) use of aromatase inhibitors; Z79.82 Long term (current) use of aspirin; Z79.899 Other long term (current) drug therapy; Z92.21 Personal history of antineoplastic chemotherapy
CPT/HCPCS: 36590; J1100; J2405; J2001; J3010; J2704

== ENCOUNTER → 2018-09-17 | Outpatient (CLI) | payer MEDICARE ==
[2018-09-17 13:26] VITALS: BP 173/75; PULSE 81; RESP 16; BMI 23.7
--- NOTE | 2018-09-17 13:36 | P.PN ---
Subjective Progress Note Date: 09/17/18 Principal diagnosis: Stage 1A left breast cancer Melinda is a 73-year-old white female status post left breast lumpectomy and sentinel node biopsy in January 2018. She subsequently underwent invasive chemotherapy and 6 weeks of radiation therapy. She is still on Herceptin until February. She is on Femara. The patient has no complaints at this time. She continues used to follow with medical and radiation oncology. She is due for bilateral mammogram in December. Objective - Vital Signs Vital signs: Vital Signs Temp Pulse 81 09/17/18 13:20 Resp 16 09/17/18 13:20 BP 173/75 09/17/18 13:20 Pulse Ox - Constitutional General appearance: Present: average body habitus - EENT Eyes: Present: EOMI ENT: Present: hearing grossly normal - Neck Neck: Present: normal ROM - Respiratory Respiratory: bilateral: CTA - Cardiovascular Rhythm: regular Heart sounds: normal: S1, S2 - Gastrointestinal General gastrointestinal: Present: soft - Integumentary Integumentary Comment(s): Mild maculopapular rash over her chest greater on the left side Well-healed incision from removal of Port-A-Cath on the right chest wall Integumentary: Present: normal turgor - Musculoskeletal Musculoskeletal: Present: gait normal - Psychiatric Psychiatric: Present: A&O x's 3, appropriate affect, intact judgment & insight - Additional findings Additional findings: breast exam: right breast: Multiple positional exam no dominant masses or nodules of concern Port site clean and dry recently removed Right axilla: No adenopathy of concern Left breast: Well-healed scar from prior lumpectomy, radiation changes, fullness at the area of the lumpectomy site no dominant masses or nodules of concern, fibrocystic changes Left axilla: No adenopathy of concern Assessment and Plan Assessment: Impression: 1. Patient status post left breast lumpectomy, sentinel node biopsy 2. Status post radiation therapy to the left breast 3. Patient status post chemotherapy continues on Herceptin and Femara 4.HTN 5. Rash over the left upper chest Plan: 1. Continue follow-up with medical oncology 2. Continue Herceptin until February 3. Continue Femara 4. Follow-up with me in December after bilateral mammogram 5. Patient is to call if she has anything of concern 6. Patient is going to watch the area of the rash if this does not resolve she will call us or Dr. Argueta CC: Dr. Argueta
== END | disposition home or self-care (01) ==
LOC: WWCWWP 13:10
PROVIDERS: ATTEND Surgery
DX: Z53.9 Procedure and treatment not carried out, unspecified reason (principal)

== ENCOUNTER → 2018-12-02 | Outpatient (CLI) | payer MEDICARE ==
--- NOTE | 2018-12-02 11:45 | MM ---
Reason for exam: additional evaluation requested from prior study. Last mammogram was performed 1 year ago. History: Patient is postmenopausal and has history of breast cancer at age 72. Malignant MG pre op needle loc LT of the left breast, December 29, 2017. Lumpectomy of the left breast, December 29, 2017. Malignant US biopsy breast VAD LT of the left breast, December 07, 2017. Chemotherapy, 2018. Radiation therapy of the left breast, 2018. Taking antineoplastic beginning at age 72. Physical Findings: Nurse did not find any significant physical abnormalities on exam. MG 3D Diag Mammo W/Cad SARAH Bilateral CC and MLO view(s) were taken. Prior study comparison: December 07, 2017, left breast MG diagnostic mammo LT wo CAD. November 25, 2017, bilateral MG 3d diag mammo w/cad SARAH. The breast tissue is heterogeneously dense. This may lower the sensitivity of mammography. Benign appearing bilateral calcifications. Right upper outer quadrant distortion 6.8-6.9cm from nipple at middle posterior depth. Left posterior surgical change. These results were verbally communicated with the patient and result sheet given to the patient on 12/02/18. ASSESSMENT: Incomplete: need additional imaging evaluation, BI-RAD 0 RECOMMENDATION: Ultrasound of the right breast. (upper outer quadrant)
--- NOTE | 2018-12-02 11:50 | USB ---
Reason for exam: additional evaluation requested from abnormal screening. History: Patient is postmenopausal and has history of breast cancer at age 72. Malignant MG pre op needle loc LT of the left breast, December 29, 2017. Lumpectomy of the left breast, December 29, 2017. Malignant US biopsy breast VAD LT of the left breast, December 07, 2017. Chemotherapy, 2018. Radiation therapy of the left breast, 2018. Taking antineoplastic beginning at age 72. US Breast Limited RT Right limited breast ultrasound including focal area of concern, retroareolar and axilla demonstrates a 1.1 x 1.0 x 0.7cm mixed lesion at 10 o'clock, highly suspicious, correlates with mammographic finding and a 0.4 x 0.2 x 0.4cm cystic lesion at 9:30. These results were verbally communicated with the patient and result sheet given to the patient on 12/02/18. ASSESSMENT: Highly suggestive of malignancy, BI-RAD 5 RECOMMENDATION: Ultrasound core biopsy of the right breast. Called with mammographic findings and has scheduled an appointment for the patient for 12/20/18 at 10:[address] Buckley. Biopsy scheduled for 12/08/18 at 12:20. PRELIMINARY REPORT CALLED AND FAXED TO DR. BUCKLEY ON 12/02/18.
== END | disposition home or self-care (01) ==
LOC: RADMAMWWP 06:54
PROVIDERS: ATTEND Radiology Radiation Oncology
DX: C50.412 Malignant neoplasm of upper-outer quadrant of left female breast (principal); C77.9 Secondary and unspecified malignant neoplasm of lymph node, unspecified; Z92.21 Personal history of antineoplastic chemotherapy
CPT/HCPCS: 77066; 76642; G0279; 77062

== ENCOUNTER → 2018-12-08 | Day surgery (SDC) | payer MEDICARE ==
[2018-12-08 11:42] VITALS: BMI 23.7
[2018-12-08 11:43] VITALS: RESP 16; TEMP 98.5
[2018-12-08 14:26] VITALS: BP 162/70; PULSE 70
--- NOTE | 2018-12-08 14:56 | USB ---
EXAMINATION TYPE: US biopsy breast VAD RT, MG diagnostic mammo RT wo CAD DATE OF EXAM: 12/08/2018 CLINICAL HISTORY: R92.8 ABN MAMMO. TECHNIQUE: Ultrasound guided core biopsy of right breast. COMPARISON: 12/02/2018 FINDINGS: The procedure of ultrasound guided core biopsy was explained to the patient. Benefits, alternatives, and risks were discussed. An informed consent was then obtained. Preprocedural timeout was performed. And preprocedural imaging the previously seen highly suspicious area is located within dense breast tissue and appears less conspicuous and less suspicious. The patient was placed in supine positioning for imaging and for the procedure. The 1.1 x 1.0 x 0.7 cm mass at the 10:00 position in the right breast was localized. The overlying skin was prepped and draped in usual sterile fashion. 10 cc of 1% lidocaine was used as anesthetic into the skin and subcutaneous tissue and 5 cc of lidocaine with epinephrine was utilized to anesthetize the subcutaneous tissue surrounding the site of biopsy. Under ultrasound guidance, a 12-gauge vacuum assisted biopsy gun device was used to obtain 6 core samples. Following this, a coil-shaped biopsy marker was left in the mass. The patient tolerated the procedure well without any immediate complication. The patient was kept in the radiology department for short stay after the procedure and then discharged home in stable condition. Postprocedure mammogram demonstrate the biopsy marker placement near the site of distortion on the prior mammogram given differences in technique. IMPRESSION: Successful, uncomplicated ultrasound guided core biopsy of a 1.1 x 1.0 x 0.7 cm intermediate suspicion mass at the 10:00 position in the right breast, full pathology results to follow. The previously seen highly suspicious mass appears less conspicuous and less suspicious on real-time imaging and that within dense breast tissue. Pathology Results: Benign RIGHT BREAST, TEN O'CLOCK, ULTRASOUND GUIDED CORE BIOPSY: Fibrocystic changes including dense stromal fibrosis, sclerosing adenosis with rare microcalcifications and small cysts. Negative for malignancy. Recommendation Follow up mammogram of the right breast in 6 months. Dense stromal fibrosis is concordant with imaging on the day of biopsy. MTDD
== END ==
LOC: RADUSWWP 11:12
PROVIDERS: ATTEND Surgery
DX: N60.11 Diffuse cystic mastopathy of right breast (principal); N60.21 Fibroadenosis of right breast; R92.8 Other abnormal and inconclusive findings on diagnostic imaging of breast; Z85.3 Personal history of malignant neoplasm of breast; Z92.21 Personal history of antineoplastic chemotherapy
CPT/HCPCS: 88305; 77065; 19083; A4648; J2001

== ENCOUNTER → 2018-12-20 | Outpatient (CLI) | payer MEDICARE ==
[2018-12-20 10:28] VITALS: BP 180/76; PULSE 81; RESP 18; TEMP 97.9; BMI 23.7
== END | disposition home or self-care (01) ==
LOC: WWCWWP 10:12
PROVIDERS: ATTEND Surgery
DX: Z53.9 Procedure and treatment not carried out, unspecified reason (principal)

== ENCOUNTER → 2019-10-14 | Outpatient (CLI) | payer MEDICARE ==
--- NOTE | 2019-10-18 10:30 | MM ---
Reason for exam: additional evaluation requested from prior study. Last mammogram was performed 10 months ago. History: Patient is postmenopausal, has history of breast cancer at age 72, and history of other cancer. Benign US biopsy breast VAD RT of the right breast, December 08, 2018. Malignant MG pre op needle loc LT of the left breast, December 29, 2017. Lumpectomy of the left breast, December 29, 2017. Malignant US biopsy breast VAD LT of the left breast, December 07, 2017. Chemotherapy, 2018. Radiation therapy of the left breast, 2018. Taking antineoplastic beginning at age 72. Physical Findings: Nurse did not find any significant physical abnormalities on exam. MG 3D Diag Mammo W/Cad SARAH Bilateral CC and MLO view(s) were taken. XCCL view(s) were taken of the left breast. Prior study comparison: December 08, 2018, right breast MG diagnostic mammo RT wo CAD. December 02, 2018, bilateral MG 3d diag mammo w/cad SARAH. The breast tissue is heterogeneously dense. This may lower the sensitivity of mammography. Finding #1: Architectural distortion in the upper outer quadrant of the left breast. Finding #2: There are stable typically benign calcifications in both breasts. Previous mammotome biopsy in the right breast. No significant changes in finding since December 08, 2018 and December 02, 2018. These results were verbally communicated with the patient and result sheet given to the patient on 10/14/19. ASSESSMENT: Benign, BI-RAD 2 RECOMMENDATION: Follow-up diagnostic mammogram of both breasts in 1 year.
== END | disposition home or self-care (01) ==
LOC: RADMAMWWP 13:11
PROVIDERS: ATTEND Radiology Radiation Oncology
DX: C50.412 Malignant neoplasm of upper-outer quadrant of left female breast (principal); C77.9 Secondary and unspecified malignant neoplasm of lymph node, unspecified; R92.8 Other abnormal and inconclusive findings on diagnostic imaging of breast; Z92.21 Personal history of antineoplastic chemotherapy; Z92.3 Personal history of irradiation; Z79.811 Long term (current) use of aromatase inhibitors
CPT/HCPCS: 77066; G0279; 77062

== ENCOUNTER → 2019-10-20 | Outpatient (CLI) | payer MEDICARE ==
[2019-10-20 15:43] VITALS: BP 164/82; PULSE 95; RESP 20; TEMP 98.6
--- NOTE | 2019-10-20 16:07 | P.PN ---
Subjective Progress Note Date: 10/20/19 Principal diagnosis: stage 1A left breast cancer Melinda is a 73-year-old white female status post left breast lumpectomy and sentinel node biopsy in January 2018. She subsequently underwent chemotherapy and 6 weeks of radiation therapy. She is still on Herceptin until January 19, 2019. She is on Letrazole. The patient has no complaints at this time. She continues used to follow with medical and radiation oncology. She had bilateral mammograms done in December,. It was recommended she have an ultrasound of the right breast. This led to an ultrasound-guided core biopsy of the right breast. Although this was a BIRADS 5 and the ultrasound core biopsy was done it appeared less suspicious and pathology was benign. These films were reviewed with the radiologist who felt that the area was adequately sampled. She had a bilateral mammogram in and this was benign BIRADS 2. The patient is not complaining of any masses lumps or nodules in her breast. Right breast is larger than her left breast however at this time she is not concerned about a symmetry procedure. Family History: maternal grandfather: lung cancer Surgical history: 1. Left breast lumpectomy, sentinal node biopsy 2. tubal ligation 3. tonsil Medical History: none Social History; smoke: none alcohol: occasional drugs: none Systems: HEENT:wears galsees lungs: none heart: none GI: none : tubal ligation Musculoskeletal: Arthritis Neurologic: Negative Psychiatric: Negative ALLERGIES: seasonal allergies hematologi: baby aspirin Objective - Vital Signs Vital signs: Vital Signs Temp 98.6 F 10/20/19 15:39 Pulse 95 10/20/19 15:39 Resp 20 10/20/19 15:39 BP 164/82 10/20/19 15:39 Pulse Ox 100 10/20/19 15:39 Intake & Output 10/19/19 10/20/19 10/20/19 18:59 06:59 18:59 Weight 68.039 kg - Exam BMI 24.2 - Constitutional General appearance: Present: average body habitus - EENT Eyes: Present: EOMI ENT: Present: hearing grossly normal - Respiratory Respiratory: bilateral: CTA - Cardiovascular Rhythm: regular Heart sounds: normal: S1, S2 - Gastrointestinal General gastrointestinal: Present: normal bowel sounds, soft - Integumentary Integumentary: Present: normal turgor - Musculoskeletal Musculoskeletal: Present: gait normal - Psychiatric Psychiatric: Present: A&O x's 3, appropriate affect, intact judgment & insight - Additional findings Additional findings: breast exam: BRA 38C inspection: Right breast larger than left breast Right breast grade 3 ptosis, left breast grade 2 ptosis Palpation: Right breast: Multi-positional exam no dominant masses or nodules of concern, fibrocystic changes Right axilla: No adenopathy of concern Left breast: Multi-positional exam postop changes with scar at the lumpectomy site Left axilla: No adenopathy of concern Assessment and Plan Assessment: Impression: 1. No evidence of recurrent cancer left breast 2. Asymmetry of breast 2. Fibrocystic breast changes 4. Recent bilateral mammogram 06/23/2019 benign BIRADS 2 repeat bilateral mammogram in 1 year Plan: 1. Follow-up exam here in 6 months 2. Continue Letrazole 3. Bilateral mammogram in 1 year 4. Patient is not interested in a symmetry procedure at this time Cc: Dr. Argueta encounter 20 mnutes, > 50% of time in planning and counselling
== END | disposition home or self-care (01) ==
LOC: WWCWWP 15:06
PROVIDERS: ATTEND Surgery
DX: Z53.9 Procedure and treatment not carried out, unspecified reason (principal)

== ENCOUNTER → 2019-11-01 | Outpatient (CLI) | payer MEDICARE ==
[2019-11-01 09:19] VITALS: BP 152/70; PULSE 82; RESP 18; TEMP 98.2
--- NOTE | 2019-11-01 10:23 | P.HPOB ---
History of Present Illness H&P Date: 11/01/19 Chief Complaint: The patient is here for her routine gynecologic exam. This is a 74-year-old with an LMP of 2000. The patient is without gynecologic complaints and denies any postmenopausal bleeding. Last pelvic exam was in 2016. Review of Systems She has lost about 13 pounds over the past 4 years. She states most of this weight loss was around the time of her breast cancer diagnosis in 2018. She states she has gained some weight back since then. She denies respiratory, cardiac and G.I. problems. She denies maltreatment or problems with falling. : she denies any significant problems with urinary leakage. Past Medical History Past Medical History: Cancer, Hypertension Additional Past Medical History / Comment(s): L breast CA stage 1A 2018 s/p lumpectomy,chemo,radiation. Basal cell skin cancer(nose). Osteopenia. 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 History of Any Multi-Drug Resistant Organisms: None Reported Past Surgical History: Breast Surgery, Tubal Ligation Additional Past Surgical History / Comment(s): Lt breast lumpectomy 2018. Basal cell skin cancer removed from the nose. Last colonoscopy 2015(next after 10yr). Past Anesthesia/Blood Transfusion Reactions: No Reported Reaction Past Psychological History: No Psychological Hx Reported Smoking Status: Never smoker Past Alcohol Use History: Occasional (3 glasses of wine per week) Past Drug Use History: None Reported Additional History: She is been since 1967 and is sexually active. She is retired. - Past Family History Mother Family Medical History: CVA/TIA, Hypertension Father Family Medical History: COPD Medications and Allergies Home Medications Medication Instructions Recorded Confirmed Type Lisinopril [Zestril] 5 mg PO QAM 12/02/17 11/01/19 History Aspirin [Adult Low Dose Aspirin EC] 81 mg PO DAILY 09/07/18 11/01/19 History Letrozole 2.5 mg PO DAILY 09/07/18 11/01/19 History Risedronate Sodium [Actonel] 35 mg PO SA 09/07/18 11/01/19 History Multivit/Folic Acid/Vit K1 1 each PO DAILY 09/17/18 11/01/19 History [One-A-Day Women's 50 Plus Tab] Allergies Allergy/AdvReac Type Severity Reaction Status Date / Time No Known Allergies Allergy Verified 11/01/19 09:12 Exam Vital Signs Temp Pulse Resp BP Pulse Ox 11/01/19 09:13 98.2 F 82 18 152/70 100 Intake and Output 10/31/19 11/01/19 11/01/19 22:59 06:59 14:59 Other: Weight 69.4 kg Height 5 feet 6 inches, weight 153 pounds, BMI 24.7. This is a well-developed well-nourished white female who is alert and oriented times 3 in no acute distress. HEENT: Within normal limits. NECK: Supple without mass or thyromegaly. CHEST AND LUNGS: Clear to auscultation. HEART: Regular rate and rhythm. BREASTS: The left breast has a slightly dimpled area with firmness at the 1 to 2 o'clock position consistent with her previous lumpectomy with BioSorb and radiation therapy. There are no other masses. There is no nipple discharge. AXILLARY EXAM: Negative for adenopathy. BACK: Negative for CVA tenderness. ABDOMEN: Soft, nontender, without palpable masses. PELVIC EXAM: Normal external genitalia with mild atrophy. Cervix and vagina appear normal mild atrophy. There is no unusual discharge. There is no evidence of prolapse. The uterus is midposition, nongravid size and nontender. There are no palpable adnexal masses or tenderness. RECTAL EXAM: rectovaginal exam is negative for mass or tenderness and is negative for occult blood. EXTREMITIES: Nontender. IMPRESSION: 1. 74-year-old menopausal female with normal gynecologic exam. 2. History of left breast cancer status post lumpectomy, radiation, and chemotherapy. 3. History of osteopenia now on Actonel through Dr. Abad. PLAN: 1. Pap smear was performed. She had a negative Pap smear in 2016. If this one is negative, we will repeated in 2-3 years and once we have had 3 negative Pap smears in 10 years, we will consider discontinuing Pap smear testing. 2. Self breast awareness was discussed with the patient. 3. Mammogram was done earlier this month and was benign. Mammogram testing will be done through her breast cancer doctors, Dr. Saúl Moreau and Dr. Abad. 4. Osteoporosis prevention was discussed. I have stressed the importance of adequate calcium, vitamin D and regular exercise. Recommended amounts of calcium and vitamin D were also discussed. She will continue Actonel as prescribed. 5. She did receive her flu shot last fall. 6. The patient was advised to return in 1-2 years for her well woman examination .
--- NOTE | 2019-11-08 17:31 | P.PN ---
Progress Note - Text Progress Note Date: 11/08/19 OUTPATIENT FOLLOW-UP NOTE TEST(S)/RESULTS: Pap smear from 11/01/2019 was negative. METHOD OF NOTIFICATION: A message was left with her by phone regarding the normal test result. He states he will notify the patient. PATIENT COMMENTS: DIAGNOSIS: Negative Pap smear. DISCUSSION: We will plan on repeating the Pap smear testing in 2-3 years and if this is negative, we will consider discontinuing Pap smears at that time. PLAN: The patient was advised to return in 1-2 years for her well woman examination.
== END | disposition home or self-care (01) ==
LOC: WWCWWP 09:01
PROVIDERS: ATTEND Obstetrics & Gynecology
DX: Z53.9 Procedure and treatment not carried out, unspecified reason (principal)

== ENCOUNTER → 2020-02-23 | Outpatient (CLI) | payer MEDICARE ==
[2020-02-23 10:44] VITALS: BP 176/98; PULSE 85; RESP 18; TEMP 98.1
--- NOTE | 2020-02-23 12:43 | P.PN ---
Subjective Progress Note Date: 02/23/20 Principal diagnosis: stage IA left breast cancer stage 1A left breast cancer Melinda is a 73-year-old white female status post left breast lumpectomy and sentinel node biopsy in January 2018. She subsequently underwent chemotherapy and 6 weeks of radiation therapy. She is on Letrazole. The patient has no complaints at this time. She continues used to follow with medical and radiation oncology. Based on the mammogram of December of 2018 she underwent an ultrasound of the right breast. It was recommended she have an ultrasound of the right breast. This led to an ultrasound-guided core biopsy of the right breast. Although this was a BIRADS 5 and the ultrasound core biopsy was done it appeared less suspicious and pathology was benign. These films were reviewed with the radiologist who felt that the area was adequately sampled. She had a bilateral mammogram in and this was benign BIRADS 2. The patient is not complaining of any masses lumps or nodules in her breast. Right breast is larger than her left breast however at this time she is not co ncerned about a symmetry procedure. Repeat ultrasound and mammogram performed today showed some slight increased vascularity at the area of the fullness in the left breast. Mammogram remained stable. After review with radiology was recommended that an ultrasound-guided core biopsy be performed. Family History: maternal grandfather: lung cancer Surgical history: 1. Left breast lumpectomy, sentinal node biopsy 2. tubal ligation 3. tonsil Medical History: none Social History; smoke: none alcohol: occasional drugs: none Systems: HEENT:wears galsees lungs: none heart: none GI: none : tubal ligation Musculoskeletal: Arthritis Neurologic: Negative Psychiatric: Negative ALLERGIES: seasonal allergies hematologi: baby aspirin Objective - Exam BMI 24.3 - Constitutional General appearance: Present: average body habitus - EENT Eyes: Present: EOMI ENT: Present: hearing grossly normal - Neck Neck: Present: normal ROM - Respiratory Respiratory: bilateral: CTA - Cardiovascular Rhythm: regular Heart sounds: normal: S1, S2 - Gastrointestinal General gastrointestinal: Present: normal bowel sounds, soft - Integumentary Integumentary Comment(s): normal turgor - Musculoskeletal Musculoskeletal: Present: gait normal - Psychiatric Psychiatric: Present: A&O x's 3, appropriate affect, intact judgment & insight - Additional findings Additional findings: Breast exam: BRA: 38C inspection: Deformity of the left breast related to prior lumpectomy and radiation therapy Right breast: Multiple positional exam fibrocystic changes no dominant masses or nodules of concern Right axilla: No adenopathy of concern Left breast: Well-healed scar from prior surgery, radiation changes, fullness in the area of the scar most likely radiation and scar changes however there is some fullness/nodularity at this site Left axilla: No adenopathy of concern Assessment and Plan Assessment: Impression: 1. Status post left breast lumpectomy/radiation therapy 2. Fullness on examination left breast at prior lumpectomy site 3. stabel right breast radiographs Plan: 1. Ultrasound of left breast at the area of fullness 2. Patient has already had an ultrasound core biopsy of the right breast which was benign, there is nothing of concern at this site at this time 3. Ultrasound-guided core biopsy of the left breast follow-up after this CC: Dr. Argueta The risks and benefits of the procedure discussed with the patient. These include but are not limited to bleeding, infection, reaction to the anesthetic. She understands and wishes to proceed. encounter 25 minutes > 50% of time in planning and counselling
--- NOTE | 2020-02-28 09:39 | USB ---
Reason for exam: clinical finding. History: Patient is postmenopausal, has history of breast cancer at age 72, and history of other cancer. Benign US biopsy breast VAD RT of the right breast, December 08, 2018. Malignant MG pre op needle loc LT of the left breast, December 29, 2017. Lumpectomy of the left breast, December 29, 2017. Malignant US biopsy breast VAD LT of the left breast, December 07, 2017. Chemotherapy, 2018. Radiation therapy of the left breast, 2018. Taking antineoplastic beginning at age 72. Physical Findings: Breast exam performed by Dr. Buckley. US Breast Limited LT Left limited breast ultrasound including focal area of concern, retroareolar and axilla demonstrates a 3.2 x 2.9 x 2.8cm irregular, mixed, vascular lesion at 2 o'clock, questionable scar but concerned peripheral vascularity. These results were verbally communicated with the patient and result sheet given to the patient on 02/23/20. ASSESSMENT: Incomplete: need additional imaging evaluation, BI-RAD 0 RECOMMENDATION: Follow-up diagnostic mammogram of the left breast.
--- NOTE | 2020-02-28 09:42 | MM ---
Reason for exam: additional evaluation requested from abnormal screening. Last mammogram was performed 4 months ago. History: Patient is postmenopausal, has history of breast cancer at age 72, and history of other cancer. Benign US biopsy breast VAD RT of the right breast, December 08, 2018. Malignant MG pre op needle loc LT of the left breast, December 29, 2017. Lumpectomy of the left breast, December 29, 2017. Malignant US biopsy breast VAD LT of the left breast, December 07, 2017. Chemotherapy, 2018. Radiation therapy of the left breast, 2018. Taking antineoplastic beginning at age 72. MG 3D Diag Mammo W/Cad LT CC and MLO view(s) were taken of the left breast. Prior study comparison: October 14, 2019, bilateral MG 3d diag mammo w/cad SARAH. December 08, 2018, right breast MG diagnostic mammo RT wo CAD. The breast tissue is heterogeneously dense. This may lower the sensitivity of mammography. Finding: There is stable architectural distortion in the upper outer quadrant, posterior position of the left breast consistent with known lumpectomy changes. These results were verbally communicated with the patient and result sheet given to the patient on 02/23/20. ASSESSMENT: Suspicious, BI-RAD 4 RECOMMENDATION: Ultrasound core biopsy of the left breast. (questionable vascular peripheral scar) Called office with mammographic findings and has scheduled an appointment for the patient for 03/15/20 at 4:[address] Buckley. Biopsy scheduled for 03/07/20 at 10:30. PRELIMINARY REPORT CALLED AND FAXED TO DR. BUCKLEY ON 02/28/20.
== END | disposition home or self-care (01) ==
LOC: WWCWWP 10:34
PROVIDERS: ATTEND Surgery
DX: R92.8 Other abnormal and inconclusive findings on diagnostic imaging of breast (principal)
CPT/HCPCS: 77065; 76642; G0279; 77061

== ENCOUNTER → 2020-03-07 | Day surgery (SDC) | payer MEDICARE ==
[2020-03-07 09:39] VITALS: RESP 16
--- NOTE | 2020-03-07 10:43 | USB ---
EXAMINATION TYPE: US biopsy breast VAD LT DATE OF EXAM: 03/07/2020 CLINICAL HISTORY: Z85.3, Personal history of breast cancer. TECHNIQUE: Ultrasound guided core biopsy of left breast. COMPARISON: 02/23/2020, 10/14/2019 FINDINGS: The procedure of ultrasound guided core biopsy was explained to the patient. Benefits, alt ernatives, and risks were discussed. An informed consent was then obtained. The patient was placed in supine positioning for imaging and for the procedure. The overlying skin w as prepped and draped in usual sterile fashion. Lidocaine buffered with bicarbonate was used as anes thetic into the skin and subcutaneous tissue up to area of concern in the left breast. A bryan was ma de with surgical scalpel. Under ultrasound guidance, a 12-gauge vacuum assisted biopsy gun device was used to obtain 4 core yessy ples. Following this, a biopsy clip was left in lesion. The patient tolerated the procedure well without any immediate complication. The patient was kept in the radiology department for short stay after the procedure and then discharged home in stable condi tion. IMPRESSION: Successful, uncomplicated ultrasound guided core biopsy of area of concern in the left br east, full pathology results to follow.
[2020-03-07 10:46] VITALS: BP 178/74; PULSE 91; TEMP 98.1
--- NOTE | 2020-03-07 11:06 | MM ---
Reason for exam: additional evaluation requested from abnormal screening. Last mammogram was performed less than 1 month ago. History: Patient is postmenopausal, has history of breast cancer at age 72, and history of other cancer. Benign US biopsy breast VAD RT of the right breast, December 08, 2018. Malignant MG pre op needle loc LT of the left breast, December 29, 2017. Lumpectomy of the left breast, December 29, 2017. Malignant US biopsy breast VAD LT of the left breast, December 07, 2017. Chemotherapy, 2018. Radiation therapy of the left breast, 2018. Taking antineoplastic beginning at age 72. MG Diagnostic Mammo LT Wo CAD CC and MLO view(s) were taken of the left breast. Prior study comparison: February 23, 2020, left breast MG 3d diag mammo w/cad LT. October 14, 2019, bilateral MG 3d diag mammo w/cad SARAH. ASSESSMENT: Post procedure mammogram for marker placement RECOMMENDATION: Ultrasound of the left breast in 6 months. PENDING PATHOLOGY RESULTS.
== END ==
LOC: RADUSWWP 09:25
PROVIDERS: ATTEND Surgery
DX: L90.5 Scar conditions and fibrosis of skin (principal); Z85.3 Personal history of malignant neoplasm of breast; R92.8 Other abnormal and inconclusive findings on diagnostic imaging of breast; Z78.0 Asymptomatic menopausal state; Z85.9 Personal history of malignant neoplasm, unspecified; Z92.21 Personal history of antineoplastic chemotherapy
CPT/HCPCS: 88305; 77065; 19083; A4648; J2001

== ENCOUNTER → 2020-03-15 | Outpatient (CLI) | payer MEDICARE ==
[2020-03-15 16:14] VITALS: BP 194/76; PULSE 87; RESP 18; TEMP 98.4
--- NOTE | 2020-03-15 16:39 | P.PN ---
Progress Note - Text Progress Note Date: 03/15/20 stage IA left breast cancer stage 1A left breast cancer Melinda is a 73-year-old white female status post left breast lumpectomy and sentinel node biopsy in January 2018. She subsequently underwent chemotherapy and 6 weeks of radiation therapy. She is on Letrazole. The patient has no complaints at this time. She continues used to follow with medical and radiation oncology. Based on the mammogram of December of 2018 she underwent an ultrasound of the right breast. It was recommended she have an ultrasound of the right breast. This led to an ultrasound-guided core biopsy of the right breast. Although this was a BIRADS 5 and the ultrasound core biopsy was done it appeared less suspicious and pathology was benign. These films were reviewed with the radiologist who felt that the area was adequately sampled. She had a bilateral mammogram in and this was benign BIRADS 2. The patient is not complaining of any masses lumps or nodules in her breast. Right breast is larger than her left breast however at this time she is not concerned about a symmetry procedure. Repeat ultrasound and mammogram performed today showed some slight increased vascularity at the area of the fullness in the left breast. Mammogram remained stable. After review with radiology was recommended that an ultrasound-guided core biopsy be performed. Ultrasound core biopsy was performed on . This was benign scar with fat necrosis, foreign body reaction, chronic inflammation and hemosiderin laden histiocytes negative for residual or recurrent malignancy. The patient tolerated the procedure without any difficulty. Family History: maternal grandfather: lung cancer Surgical history: 1. Left breast lumpectomy, sentinal node biopsy 2. tubal ligation 3. tonsil Medical History: none Social History; smoke: none alcohol: occasional drugs: none Systems: HEENT:wears galsees lungs: none heart: none GI: none : tubal ligation Musculoskeletal: Arthritis Neurologic: Negative Psychiatric: Negative ALLERGIES: seasonal allergies hematologi: baby aspirin Physical exam: Lungs: Clear Heart: Regular rate and rhythm Left breast core biopsy site clean and dry no evidence of infection Impression: 1. Patient status post left breast lumpectomy and radiation therapy for stage I left breast cancer no evidence of recurrent disease 2. Abnormal radiograph of the left breast status post core biopsy consistent with fat necrosis Plan: 1. Follow-up bilateral mammogram and left breast ultrasound in October 2020 2. Continue letrazole 3. Follow-up medical oncology 3. 4. Follow-up radiation oncology 5. Follow-up in 6 months CC: Dr. Argueta encounter 15 minutes, > 50% of time in planning and counselling
== END | disposition home or self-care (01) ==
LOC: WWCWWP 16:03
PROVIDERS: ATTEND Surgery
DX: Z53.9 Procedure and treatment not carried out, unspecified reason (principal)

== ENCOUNTER → 2020-08-21 | Outpatient (CLI) | payer MEDICARE ==
--- NOTE | 2020-08-21 17:50 | BD ---
EXAMINATION TYPE: Axial Bone Density DATE OF EXAM: 08/21/2020 COMPARISON: 07/09/2018 CLINICAL HISTORY: Postmenopausal screening Height: 5 FT 5 1/2 IN Weight: 149 FRAX RISK QUESTIONS: Alcohol (3 or more units per day): NO Family History (Parent hip fracture): NO Glucocorticoids (More than 3mos): NO (Ex: prednisone, prednisolone, methylprednisolone, dexamethasone, and hydrocortisone). History of Fracture in Adulthood: YES Secondary Osteoporosis: 1. Type 1 Diabetes: NO 2. Hyperthyroidism: NO 3. Menopause before 45: NO 4. Malnutrition: NO 5. Chronic liver disease: NO Rheumatoid Arthritis: NO Current Tobacco Use: NO RISK FACTORS HISTORY OF: Surgery to Spine/Hip(right/left)/Wrist (right/left): NO Family History of Osteoporosis: YES Active: YES Diet low in dairy products/other sources of calcium: NO Postmenopausal woman: AGE 57 Take estrogen and/or progesterone medications: NONE Lost more than 2 inches in height since high school: YES MEDICATIONS: Osteoporosis Medications: YES Which medication: ACTONEL How Lon YEARS Additional Medications: LISINOPRIL , ACTONEL, HORMONE RONY Additional History: BREAST CANCER 2018 LUMPECTOMY RADIATION AND CHEMO EXAM MEASUREMENTS: Bone mineral densitometry was performed using the [employer]. Bone mineral density as measured about the Lumbar spine is: ----- L1-L4(G/cm2): 1.167 T Score Values are as follows: ----- L2: -0.7 ----- L3: -0.4 ----- L4: 0.3 ----- L1-L4: -0.1 Bone mineral density has: INCREASED 7.3 % since study of: 2018 Bone mineral density about the R hip (g/cm2): 0.795 Bone mineral density about the L hip (g/cm2): 0.819 T Score values are as follows: -----R Neck: -1.7 -----L Neck: -1.6 -----R Total: -1.9 -----L Total: -1.2 Bone mineral density has: INCREASED 5.1 % since study of: 2019 IMPRESSION: Osteopenia (T Score between -2.5 and -1). There is slightly increased risk of fracture and the patient may be considered for treatment. Re-Screen 2-5 years. NOTE: T-SCORE=SD OF THE YOUNG ADULT MEAN.
== END | disposition home or self-care (01) ==
LOC: RADBDWWP 07:52
PROVIDERS: ATTEND Internal Medicine Hematology & Oncology
DX: M85.80 Other specified disorders of bone density and structure, unspecified site (principal)
CPT/HCPCS: 77080

== ENCOUNTER → 2020-10-15 | Outpatient (CLI) | payer MEDICARE ==
--- NOTE | 2020-10-15 12:09 | USB ---
EXAMINATION TYPE: US breast limited LT DATE OF EXAM: 10/15/2020 COMPARISON: 02/23/2020, 03/07/2020, mammogram earlier same date CLINICAL HISTORY: R92.8 Abnormal Mammogram. Targeted left breast ultrasound was performed from 12-3 o'clock, the retroareolar region and left axi lla. In the left breast at 2-3:00, there is heterogeneity and ill-defined hypoechogenicity which is less p rominent than on the prior examination and consistent with the previous biopsy results of fat necrosi s. IMPRESSION: 1. Postoperative changes of the left breast. 2. Clinical follow-up is recommended for the drainage from the left breast incision. BI-RADS 2, benign. Recommendation: Bilateral diagnostic mammogram in one year.
--- NOTE | 2020-10-18 12:19 | MM ---
Reason for exam: additional evaluation requested from prior study. Last mammogram was performed 7 months ago. History: Patient is postmenopausal, has history of breast cancer at age 72, and history of other cancer. Benign US biopsy breast VAD LT of the left breast, March 07, 2020. Benign US biopsy breast VAD RT of the right breast, December 08, 2018. Malignant MG pre op needle loc LT of the left breast, December 29, 2017. Lumpectomy of the left breast, December 29, 2017. Malignant US biopsy breast VAD LT of the left breast, December 07, 2017. Chemotherapy, 2018. Radiation therapy of the left breast, 2018. Taking antineoplastic beginning at age 72. Physical Findings: Nurse did not find any significant physical abnormalities on exam. MG 3D Diag Mammo W/Cad SARAH Bilateral CC and MLO view(s) were taken. Prior study comparison: March 07, 2020, left breast MG diagnostic mammo LT wo CAD. February 23, 2020, left breast MG 3d diag mammo w/cad LT. October 14, 2019, bilateral MG 3d diag mammo w/cad SARAH. December 02, 2018, bilateral MG 3d diag mammo w/cad SARAH. The breast tissue is heterogeneously dense. This may lower the sensitivity of mammography. Right biopsy clip. Left lumpectomy changes and skin thickening. These results were verbally communicated with the patient and result sheet given to the patient on 10/15/20. ASSESSMENT: Incomplete: need additional imaging evaluation, BI-RAD 0 RECOMMENDATION: Ultrasound of the left breast.
== END | disposition home or self-care (01) ==
LOC: RADMAMWWP 10:48
PROVIDERS: ATTEND Surgery
DX: R92.2 Inconclusive mammogram (principal); Z78.0 Asymptomatic menopausal state; Z85.3 Personal history of malignant neoplasm of breast
CPT/HCPCS: 77066; 76642; G0279; 77062

== ENCOUNTER → 2020-10-19 | Outpatient (CLI) | payer MEDICARE ==
[2020-10-19 11:39] VITALS: BP 168/72; PULSE 82; RESP 14; TEMP 98.1
--- NOTE | 2020-10-19 12:03 | P.PN ---
Subjective Progress Note Date: 10/19/20 Principal diagnosis: left bresat stage IA invasive ductal cancer stage IA left breast cancer stage 1A left breast cancer Melinda is a 75-year-old white female status post left breast lumpectomy and sentinel node biopsy in January 2018. She subsequently underwent chemotherapy and 6 weeks of radiation therapy. She is on Letrazole. She continues used to follow with medical and radiation oncology. Based on the mammogram of December of 2018 she underwent an ultrasound of the right breast. It was recommended she have an ultrasound of the right breast. This led to an ultrasound-guided core biopsy of the right breast. Although this was a BIRADS 5 and the ultrasound core biopsy was done it appeared less suspicious and pathology was benign. These films were reviewed with the radiologist who felt that the area was adequately sampled. She had a bilateral mammogram in and this was benign BIRADS 2. The patient is not complaining of any masses lumps or nodules in her breast. Right breast is larger than her left breast however at this time she is not c oncerned about a symmetry procedure. Repeat ultrasound and left breast mammogram 02-23-20 showed some slight increased vascularity at the area of the fullness in the left breast. Mammogram remained stable. After review with radiology was recommended that an ultrasound-guided core biopsy be performed. Ultrasound core biopsy was performed on . This was benign scar with fat necrosis, foreign body reaction, chronic inflammation and hemosiderin laden histiocytes negative for residual or recurrent malignancy. The patient tolerated the procedure without any difficulty. The patient at this time is not complaining of any new lumps masses or nodules of her breast. She states that approximately August she did note some drainage from the scar in the left breast and the breast felt better after that. She again last week just prior to her mammogram again noted some drainage. The drainage was clear in nature. In her breast felt better after drain. She had a bilateral mammogram performed on after which she had a left breast ultrasound. These were felt to be benign BIRADS 2 and bilateral mammogram in 1 year was recommended. Additionally note from medical oncology was reviewed this is from she was recommended to continue her letrozole in follow-up in 6 months. Family History: maternal grandfather: lung cancer Surgical history: 1. Left breast lumpectomy, sentinal node biopsy 2. tubal ligation 3. tonsil Medical History: none Social History; smoke: none alcohol: occasional drugs: none Systems: HEENT:wears galsees lungs: none heart: none GI: none : tubal ligation Musculoskeletal: Arthritis Neurologic: Negative Psychiatric: Negative ALLERGIES: seasonal allergies hematologi: baby aspirin Objective - Vital Signs Vital signs: Vital Signs Temp 98.1 F 10/19/20 11:34 Pulse 82 10/19/20 11:34 Resp 14 10/19/20 11:34 BP 168/72 10/19/20 11:34 Pulse Ox 100 10/19/20 11:34 Intake & Output 10/18/20 10/19/20 10/19/20 18:59 06:59 18:59 Weight 68.039 kg - Exam BMI 24.2 - Constitutional General appearance: Present: average body habitus - EENT Eyes: Present: EOMI ENT: Present: hearing grossly normal - Neck Neck: Present: normal ROM - Respiratory Respiratory: bilateral: CTA - Cardiovascular Rhythm: regular Heart sounds: normal: S1, S2 - Integumentary Integumentary: Present: normal turgor - Musculoskeletal Musculoskeletal: Present: gait normal - Psychiatric Psychiatric: Present: A&O x's 3, appropriate affect, intact judgment & insight - Additional findings Additional findings: Breast exam: BRA: 38C inspection: Scar left breast with tiny pinpoint opening with minimal serous drainage, asymmetry of the breast related to left breast lumpectomy Palpation: Right breast: Multi-positional exam fibrocystic changes no dominant masses or nodules of concern Right axilla: No adenopathy of concern Left breast: Multi-positional exam well-healed scar with pinpoint opening in the medial aspect with some serous drainage with palpation, no evidence of infection Left axilla: No adenopathy of concern Assessment and Plan Assessment: Impression: 1. Postop changes and postradiation changes left breast. Small pinpoint opening with serous drainage probable chronic cystic change related to prior therapy 2. No evidence of any recurrent cancer 3. Fibrocystic breast changes Plan: 1. I discussed with the patient that the pinpoint opening may not close on its own. If we were going to excise that I would recommend preoperative hyper baric oxygen and postoperative hyperbaric oxygen. At this time she wants wait. 2. Repeat bilateral mammogram in 1 year 3. Follow-up here in 6 months 4. Follow-up sooner if the area of concern in the left breast continues to drain 5. Appointment with wound clinic to evaluate the left breast scar/opening in the scar Cc:
== END ==
LOC: WWCWWP 11:23
PROVIDERS: ATTEND Surgery
DX: L76.34 Postprocedural seroma of skin and subcutaneous tissue following other procedure (principal); N60.11 Diffuse cystic mastopathy of right breast; Z85.3 Personal history of malignant neoplasm of breast; Z98.890 Other specified postprocedural states

== ENCOUNTER → 2021-03-08 | Outpatient (CLI) | payer MEDICARE ==
[2021-03-08 09:09] VITALS: BP 174/79; PULSE 94; RESP 16; TEMP 98.5
--- NOTE | 2021-03-08 09:28 | P.PN ---
Subjective Progress Note Date: 03/08/21 Principal diagnosis: Stage IA vest invasive ductal left breast cancer Melinda is a 75-year-old white female status post left breast lumpectomy and sentinel node biopsy January 2018. She subsequently underwent chemotherapy and 6 weeks of radiation therapy. She is presently on letrazole. On her last visit she was noted to have a pinpoint opening in the midportion of the incision on the left breast. This had some minimal drainage. This was approximately 2 years after her surgery that this occurred. She was seen in the wound clinic on 2 occasions and given a honey lotion and the drainage stopped and the area seemed to close. She is not having any drainage at this time. She continues to follow with medical and radiation oncology. The patient's last mammogram was on . This is bilateral and ultrasound of the left breast was recommended. Ultrasound of the left breast revealed postoperative changes findings were felt to be benign BIRADS 2 and bilateral mammogram in 1 year was recommended. Family history: Maternal grandfather: Lung cancer Surgical history: Left breast lumpectomy, sentinel node biopsy Tubal ligation Tonsillectomy Medical history: Negative Social history: Smoking: Negative Alcohol: Occasional Drugs: Negative Review of systems: HEENT: Wears glasses Lungs: Negative Heart: Negative Rubin I: Negative : Tubal ligation Musculoskeletal: Arthritis Neurologic: Negative Psychiatric: Negative ALLERGIES: Seasonal Hematologic: He uses baby aspirin Objective - Vital Signs Vital signs: Vital Signs Temp 98.5 F 03/08/21 09:04 Pulse 94 03/08/21 09:04 Resp 16 03/08/21 09:04 BP 174/79 03/08/21 09:04 Pulse Ox Intake & Output 03/07/21 03/08/21 03/08/21 18:59 06:59 18:59 Weight 68.039 kg - Constitutional General appearance: Present: average body habitus - EENT Eyes: Present: EOMI - Neck Neck: Present: normal ROM - Respiratory Respiratory: bilateral: CTA - Cardiovascular Rhythm: regular Heart sounds: normal: S1, S2 - Integumentary Integumentary: Present: normal turgor - Musculoskeletal Musculoskeletal: Present: gait normal - Psychiatric Psychiatric: Present: A&O x's 3, appropriate affect, intact judgment & insight - Additional findings Additional findings: Breast examination: Prior: 38C: Inspection: Scar left breast Palpation: Lipase: Multiple positional exam fibrocystic changes no dominant masses or nodules of concern Right axilla: No adenopathy of concern Left breast: Positional exam without scar no dominant masses or nodules of concern, postop changes; the pinpoint opening in the incision which was present before has no drainage and appears to be closed at this time Left axilla: No adenopathy of concern Assessment and Plan Assessment: Impression: Stage IA left breast invasive ductal carcinoma treated with lumpectomy sentinel node biopsy radiation chemotherapy and hormonal therapy, no evidence of recurrence at this time although patient does have postoperative and postrad iation breast changes Plan: Continue Letrazole Bilateral mammogram in 6 months with physician exam at that time continue to follow with with medical oncology CC: Mir Reich
== END ==
LOC: WWCWWP 08:51
PROVIDERS: ATTEND Surgery
DX: C50.912 Malignant neoplasm of unspecified site of left female breast (principal); Z98.890 Other specified postprocedural states; Z92.3 Personal history of irradiation; Z92.21 Personal history of antineoplastic chemotherapy

== ENCOUNTER → 2021-10-18 | Outpatient (CLI) | payer MEDICARE ==
--- NOTE | 2021-10-18 10:41 | MM ---
Reason for Exam: Additional evaluation requested from prior study. Last screening mammogram was performed 12 month(s) ago. Patient History: Menarche at age 15. First Full-Term at age 23. Postmenopausal. Breast cancer, age 72. Other cancer. 12/29/2017, Lumpectomy on the Left side. 03/07/2020, Benign Core Biopsy on the left side. 12/08/2018, Benign Core Biopsy on the right side. 12/29/2017, Malignant Core Biopsy on the left side. 12/07/2017, Malignant Core Biopsy on the left side. 2018, Chemotherapy. 2017, Radiation Therapy on the left side. Tissue Density: The breast tissue is heterogeneously dense. This may lower the sensitivity of mammography. Findings: Analyzed By CAD. Status post lumpectomy changes left breast is unchanged. Benign calcifications seen bilaterally. No evidence for suspicious mass or cluster of microcalcifications. Overall Assessment: Benign, BI-RAD 2 Management: Diagnostic Mammogram of both breasts in 1 year. A clinical breast exam by your physician is recommended on an annual basis and results should be correlated with mammographic findings. This exam should not preclude additional follow-up of suspicious palpable abnormalities. Results were given to the patient verbally at the time of exam. Electronically signed and approved by: Gonzalez Fernandez M.D. Radiologis
== END | disposition home or self-care (01) ==
LOC: RADMAMWWP 10:07
PROVIDERS: ATTEND Surgery
DX: R92.1 Mammographic calcification found on diagnostic imaging of breast (principal); Z85.3 Personal history of malignant neoplasm of breast; Z78.0 Asymptomatic menopausal state
CPT/HCPCS: 77066; G0279; 77062

== ENCOUNTER → 2021-10-25 | Outpatient (CLI) | payer MEDICARE ==
[2021-10-25 10:26] VITALS: BP 175/74; PULSE 88; RESP 17; TEMP 97.9
--- NOTE | 2021-10-25 11:03 | P.PN ---
Subjective Progress Note Date: 10/25/21 Principal diagnosis: stage IA left breast invasive ductal cancer Stage IA invasive ductal left breast cancer Melinda is a 75-year-old white female status post left breast lumpectomy and sentinel node biopsy January 2018. She subsequently underwent chemotherapy and 6 weeks of radiation therapy. She is presently on letrazole. On her last visit she was noted to have a pinpoint opening in the midportion of the incision on the left breast. This had some minimal drainage. This was approximately 2 years after her surgery that this occurred. She was seen in the wound clinic on 2 occasions and given a honey lotion and the drainage stopped and the area seemed to close. She is not having any drainage at this time. She continues to follow with medical and radiation oncology. The patient's last mammogram was on . This is bilateral and ultrasound of the left breast was recommended. Ultrasound of the left breast revealed postoperative changes findings were felt to be benign BIRADS 2 and bilateral mammogram in 1 year was recommended. 10-25-21 Patient had a bilateral mammogram on 10-18-21 which was benign BIRAD 2. He is not complaining of any new lumps masses or nodules of concern in either breast. The area which had drained previously has stopped. She continues to take letrazole. Family history: Maternal grandfather: Lung cancer Surgical history: Left breast lumpectomy, sentinel node biopsy Tubal ligation Tonsillectomy Medical history: HTN Social history: Smoking: Negative Alcohol: Occasional Drugs: Negative Review of systems: HEENT: Wears glasses Lungs: Negative Heart: Negative Rubin I: Negative : Tubal ligation Musculoskeletal: Arthritis Neurologic: Negative Psychiatric: Negative ALLERGIES: Seasonal Hematologic: He uses baby aspirin Objective - Vital Signs Vital signs: Vital Signs Temp 97.9 F 10/25/21 10:23 Pulse 88 10/25/21 10:23 Resp 17 10/25/21 10:23 BP 175/74 10/25/21 10:23 Pulse Ox 98 10/25/21 10:23 FiO2 Intake & Output 10/24/21 10/25/21 10/25/21 18:59 06:59 18:59 Weight 68.039 kg - Exam BMI: 24.2 - Constitutional General appearance: Present: cooperative - EENT Eyes: Present: EOMI ENT: Present: hearing grossly normal - Neck Neck: Present: normal ROM - Respiratory Respiratory: bilateral: CTA - Cardiovascular Heart sounds: normal: S1, S2 - Gastrointestinal General gastrointestinal: Present: soft - Integumentary Integumentary: Present: normal turgor - Musculoskeletal Musculoskeletal: Present: gait normal - Psychiatric Psychiatric: Present: A&O x's 3, appropriate affect, intact judgment & insight - Additional findings Additional findings: Breast Exam: BRA: 38D Inspection: Left breast post surgery and radiation changes Palpation: Right breast: Multi-positional exam no dominant masses or nodules of concern Right axilla: No adenopathy of concern Left breast: Postop and post radiation changes no dominant masses or nodules of concern Left axilla: No adenopathy of concern Assessment and Plan Assessment: Impression: Patient status post left breast lumpectomy/radiation therapy for a stage IA left breast invasive ductal carcinoma no evidence of recurrence [place] [id number] benign BIRADS 2 Patient continues on left result Plan: Follow-up 6 months for examination Continue left resolve Bilateral mammogram 1 year with physician exam at that time as well CC: Dr. Argueta
== END ==
LOC: WWCWWP 09:20
PROVIDERS: ATTEND Surgery
DX: Z08 Encounter for follow-up examination after completed treatment for malignant neoplasm (principal); Z98.890 Other specified postprocedural states; Z85.3 Personal history of malignant neoplasm of breast; I10 Essential (primary) hypertension

== ENCOUNTER → 2021-11-12 | Outpatient (CLI) | payer MEDICARE ==
[2021-11-12 13:57] VITALS: BP 170/82; PULSE 81; RESP 17; TEMP 97.9
--- NOTE | 2021-11-12 14:52 | P.HPOB ---
History of Present Illness H&P Date: 11/12/21 Chief Complaint: The patient is here for her routine gynecologic exam. This is a 76-year-old with an LMP of 2000. The patient is without gynecologic complaints and denies any postmenopausal bleeding. Review of Systems The patient's weight has been stable over the last year. She denies respiratory, cardiac, or G.I. problems. Past Medical History Past Medical History: Cancer, Hypertension Additional Past Medical History / Comment(s): L breast CA stage 1A 2018 s/p lumpectomy, chemo, radiation; Basal cell skin cancer(nose); Osteopenia. 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 History of Any Multi-Drug Resistant Organisms: None Reported Past Surgical History: Breast Surgery, Tubal Ligation Additional Past Surgical History / Comment(s): Lt breast lumpectomy 2017; Basal cell skin cancer removed from the nose; Last colonoscopy 2015(next after 10yr); Past Anesthesia/Blood Transfusion Reactions: No Reported Reaction Past Psychological History: No Psychological Hx Reported Smoking Status: Never smoker Past Alcohol Use History: Occasional (3 per week) Past Drug Use History: None Reported Additional History: She has been since 1967 and is infrequently sexually active. She is retired. - Past Family History Mother Family Medical History: CVA/TIA, Hypertension Father Family Medical History: COPD Medications and Allergies Home Medications Medication Instructions Recorded Confirmed Type lisinopriL [Zestril] 5 mg PO QAM 12/02/17 11/12/21 History Aspirin [Adult Low Dose Aspirin EC] 81 mg PO QAM 09/07/18 11/12/21 History Letrozole 2.5 mg PO QAM 09/07/18 11/12/21 History Risedronate Sodium [Actonel] 35 mg PO QAM 09/07/18 11/12/21 History Multivit/Folic Acid/Vit K1 1 each PO QAM 09/17/18 11/12/21 History [One-A-Day Women's 50 Plus Tab] Calcium Carbonate [Tums] 500 mg PO QAM 02/23/20 11/12/21 History Allergies Allergy/AdvReac Type Severity Reaction Status Date / Time No Known Allergies Allergy Verified 11/12/21 13:53 Exam Vital Signs Temp Pulse Resp BP Pulse Ox 11/12/21 13:54 97.9 F 81 17 170/82 100 Intake and Output 11/11/21 11/12/21 11/12/21 22:59 06:59 14:59 Other: Weight 69.853 kg Height 5 feet 6 inches, weight 154 pounds, BMI 24.9. This is a well-developed well-nourished white female who is alert and oriented times 3 in no acute distress. HEENT: Within normal limits. NECK: Supple without mass or thyromegaly. CHEST AND LUNGS: Clear to auscultation. HEART: Regular rate and rhythm. BREASTS: Are without mass or discharge. There is a dimpled area at the 2 o'clock position of the left breast consistent with her previous lumpectomy. AXILLARY EXAM: Negative for adenopathy. BACK: Negative for CVA tenderness. ABDOMEN: Soft, nontender, without palpable masses. PELVIC EXAM: Normal external genitalia with mild atrophy. Cervix and vagina appear normal with mild atrophy. There is no unusual discharge. There is no evidence of prolapse. The uterus is midposition, nongravid size and nontender. There are no palpable adnexal masses or tenderness. RECTAL EXAM: Rectovaginal exam is negative for mass or tenderness and is negative for occult blood. EXTREMITIES: Nontender. IMPRESSION: 1. 76-year-old menopausal female with normal gynecologic exam. 2. History of left breast cancer in 2018 and is status post lumpectomy, chemotherapy, and radiation therapy. No evidence of recurrence at this time. 3. History of osteopenia and she has been taking Actonel since [address] Abad. 4. Elevated blood pressure with history of chronic hypertension on medication. PLAN: 1. Pap smear was performed. She has had negative Pap smears in 2015 and 2019. If this one is negative, we will plan on discontinuing Pap smears. She does not have any history of cervical neoplasia. 2. Self breast awareness was discussed with the patient. We have also discussed symptoms associated with inflammatory breast cancer. 3. Diagnostic mammogram done on 10/18/2021 was benign. She will repeat this after 1 year. 4. Osteoporosis prevention was discussed. I have stressed the importance of adequate calcium, vitamin D and regular exercise. Recommended amounts of calcium and vitamin D were also discussed. Treatment and bone density testing will be done through Dr. Abad, as she has done in the past. 5. Her elevated Blood pressure was discussed. I have recommended that she check her own blood pressures at home on a regular basis and follow-up with her PCP for blood pressure elevations. 6. She has completed her Covid vaccination series and has had Covid in the past. 7. She was advised to return in one year for her annual well woman exam.
== END ==
LOC: WWCWWP 13:40
PROVIDERS: ATTEND Obstetrics & Gynecology
DX: Z01.419 Encounter for gynecological examination (general) (routine) without abnormal findings (principal); Z87.39 Personal history of other diseases of the musculoskeletal system and connective tissue; I10 Essential (primary) hypertension; Z88.8 Allergy status to other drugs, medicaments and biological substances; Z78.0 Asymptomatic menopausal state; Z80.3 Family history of malignant neoplasm of breast; Z98.890 Other specified postprocedural states; Z92.3 Personal history of irradiation; Z92.21 Personal history of antineoplastic chemotherapy; Z79.811 Long term (current) use of aromatase inhibitors

== ENCOUNTER → 2022-10-10 | Outpatient (CLI) | payer MEDICARE ==
--- NOTE | 2022-10-13 11:12 | BD ---
EXAMINATION TYPE: Axial Bone Density DATE OF EXAM: 10/10/2022 CLINICAL HISTORY: 77 years old Female. ICD-10 CODE: M85.9 DISORDER OF BONE DENSITY Height: 66.25" Weight: 151.8lbs FRAX RISK QUESTIONS: Alcohol (3 or more units per day): no Family History (Parent hip fracture): no Glucocorticoids (More than 3mos): no (Ex: prednisone, prednisolone, methylprednisolone, dexamethasone, and hydrocortisone). History of Fracture in Adulthood: yes, foot about 7 years ago Secondary Osteoporosis: 1. Type 1 Diabetes: no 2. Hyperthyroidism: no 3. Menopause before 45: no 4. Malnutrition: no 5. Chronic liver disease: no Rheumatoid Arthritis: no Current Tobacco Use: no RISK FACTORS HISTORY OF: Hip Fracture (Right/Left): no Spine Fracture: no History of Wrist Fracture: no Surgery to Spine/Hip(right/left)/Wrist (right/left): no Family History of Osteoporosis: no Active: yes Diet low in dairy products/other sources of calcium: no Postmenopausal woman: yes Lost more than 2 inches in height since high school: no Frequent falls: no Poor Health: no Hyperparathyroidism: no Adrenal Insufficiency: no MEDICATIONS: Prednisone or other steroids: no Thyroid Medications: no Osteoporosis Medications: not currently, discontinued about a week ago, took for 4 years (Actonel) Additional Medications: Letrazol, multivitamin Additional History: Hx breast cancer in 2018, chemo and radiation EXAM MEASUREMENTS: Bone mineral densitometry was performed using the [employer] System. Bone mineral density as measured about the Lumbar spine is: ----- L1-L4(G/cm2): 1.208 T Score Values are as follows: ----- L1: 0.4 ----- L2: -0.3 ----- L3: -0.2 ----- L4: 0.8 ----- L1-L4: 0.2 Z Score Values are as follows: ----- L1: 2.0 ----- L2: 1.3 ----- L3: 1.4 ----- L4: 2.4 ----- L1-L4: 1.9 Bone mineral density has: increased 3.5% since study of: 08/21/2020 Bone mineral density about the R hip (g/cm2): 0.804 Bone mineral density about the L hip (g/cm2): 0.829 T Score values are as follows: -----R Neck: -1.8 -----L Neck: -1.3 -----R Total: -1.6 -----L Total: -1.4 Z Score values are as follows: -----R Neck: 0.0 -----L Neck: 0.5 -----R Total: 0.0 -----L Total: 0.3 Bone mineral density has: increased 1.1% since study of: 08/21/2020 FRAX%s: The graph provided illustrates a 19.0% chance for a major osteoporotic fx and a 4.3% chance f or the hips probability for fx in 10 years time. IMPRESSION: Osteopenia (T Score between -2.5 and -1). There is slightly increased risk of fracture and the patient may be considered for treatment. Re-Screen 2-5 years. NOTE: T-SCORE=SD OF THE YOUNG ADULT MEAN.
== END | disposition home or self-care (01) ==
LOC: RADBDWWP 13:12
PROVIDERS: ATTEND Internal Medicine Hematology & Oncology
DX: C50.412 Malignant neoplasm of upper-outer quadrant of left female breast (principal); M85.89 Other specified disorders of bone density and structure, multiple sites; I10 Essential (primary) hypertension; Z85.3 Personal history of malignant neoplasm of breast
CPT/HCPCS: 77080

== ENCOUNTER → 2022-10-20 | Outpatient (CLI) | payer MEDICARE ==
--- NOTE | 2022-10-20 13:28 | MM ---
Reason for Exam: Follow-up at short interval from prior study. Last screening mammogram was performed 12 month(s) ago. Patient History: Menarche at age 15. First Full-Term at age 23. Postmenopausal. Breast cancer, age 72. Other cancer. Previous chest radiation therapy at age 72. Previous chemotherapy at age 72. 12/29/2017, Lumpectomy on the Left side. 03/07/2020, Benign Core Biopsy on the left side. 12/08/2018, Benign Core Biopsy on the right side. 12/29/2017, Malignant Core Biopsy on the left side. 12/07/2017, Malignant Core Biopsy on the left side. 2017, Chemotherapy. 2017, Radiation Therapy on the left side. Prior Study Comparison: 05/27/1995 Screening Mammogram, Unknown. 07/08/1996 Screening Mammogram, Unknown. 11/25/2017 Bilateral Diagnostic Mammogram, [facility]. 11/25/2017 Left Diagnostic Ultrasound, [facility]. 12/07/2017 Left Diagnostic Mammogram, [facility]. 12/02/2018 Bilateral Diagnostic Mammogram, [facility]. 12/02/2018 Right Diagnostic Ultrasound, [facility]. 12/08/2018 Right Diagnostic Mammogram, [facility]. 10/14/2019 Bilateral Diagnostic Mammogram, [facility]. 02/23/2020 Left Diagnostic Ultrasound, [facility]. 02/23/2020 Left Diagnostic Mammogram, [facility]. 03/07/2020 Left Diagnostic Mammogram, [facility]. 10/15/2020 Bilateral Diagnostic Mammogram, [facility]. 10/15/2020 Left Diagnostic Ultrasound, [facility]. 10/18/2021 Bilateral MG 3D diag mammo w/cad SARAH, [facility]. Tissue Density: The breast tissue is heterogeneously dense. This may lower the sensitivity of mammography. Findings: Analyzed By CAD. Posttreatment changes to the left breast with calcification and right breast biopsy clip. No new suspicious masses, calcifications or distortions. Overall Assessment: Benign, BI-RAD 2 Management: Diagnostic Mammogram of both breasts in 1 year. Results were given to the patient verbally at the time of exam. Patient should continue monthly self-breast exams. A clinical breast exam by your physician is recommended on an annual basis. This exam should not preclude additional follow-up of suspicious palpable abnormalities. Note on Aida scores and lifetime risk: 1. A Aida score greater than 3% is considered moderate risk. If this is the case, consider specialist referral to assess eligibility for a risk reducing agent. 2. If overall lifetime risk for the development of breast cancer is 20% or higher, the patient may qualify for future screening with alternating mammogram and breast MRI. Electronically signed and approved by: Delfino Flores DO
== END | disposition home or self-care (01) ==
LOC: RADMAMWWP 12:49
PROVIDERS: ATTEND Surgery
DX: Z85.3 Personal history of malignant neoplasm of breast (principal); Z78.0 Asymptomatic menopausal state
CPT/HCPCS: 77066; G0279; 77062

== ENCOUNTER → 2022-12-02 | Outpatient (CLI) | payer MEDICARE ==
--- NOTE | 2022-12-02 13:59 | P.HPOB ---
History of Present Illness H&P Date: 12/02/22 Chief Complaint: The patient is here for her routine gynecologic exam. This is a 77-year-old with an LMP of 2000. The patient is without gynecologic complaints. Review of Systems The patient's weight has been stable over the last year. She denies respiratory, cardiac, or G.I. problems. Past Medical History Past Medical History: Cancer, Hypertension Additional Past Medical History / Comment(s): L breast CA stage 1A 2018 s/p lumpectomy, chemo, radiation; Basal cell skin cancer(nose); Osteopenia. 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 History of Any Multi-Drug Resistant Organisms: None Reported Past Surgical History: Breast Surgery, Tubal Ligation Additional Past Surgical History / Comment(s): Lt breast lumpectomy 2017; Basal cell skin cancer removed from the nose; Last colonoscopy 2015(next after 10yr); Past Anesthesia/Blood Transfusion Reactions: No Reported Reaction Past Psychological History: No Psychological Hx Reported Smoking Status: Never smoker Past Alcohol Use History: Occasional (3 per week.) Past Drug Use History: None Reported Additional History: She has been since 1967 and is infrequently sexually active. She is retired. - Past Family History Mother Family Medical History: CVA/TIA, Hypertension Father Family Medical History: COPD Medications and Allergies Home Medications Medication Instructions Recorded Confirmed Type Aspirin [Adult Low Dose Aspirin EC] 81 mg PO QAM 09/07/18 12/02/22 History Letrozole 2.5 mg PO QAM 09/07/18 12/02/22 History Multivit/Folic Acid/Vit K1 1 each PO QAM 09/17/18 12/02/22 History [One-A-Day Women's 50 Plus Tab] Allergies Allergy/AdvReac Type Severity Reaction Status Date / Time No Known Allergies Allergy Verified 12/02/22 13:19 Exam Intake and Output 12/01/22 12/02/22 12/02/22 22:59 06:59 14:59 Other: Weight 69.853 kg Blood pressure 167/77, height 5 feet 6 inches, weight 154 pounds, BMI 24.9. Temperature 97.9, pulse 78, pulse oximeter 100%. This is a well-developed well-nourished white female who is alert and oriented times 3 in no acute distress. HEENT: Within normal limits. NECK: Supple without mass or thyromegaly. CHEST AND LUNGS: Clear to auscultation. HEART: Regular rate and rhythm. BREASTS: Are without mass or discharge. There is a dimpled area at approximately the 2 o'clock position of the left breast consistent with her previous lumpectomy. AXILLARY EXAM: Negative for adenopathy. BACK: Negative for CVA tenderness. ABDOMEN: Soft, nontender, without palpable masses. PELVIC EXAM: Normal external genitalia with mild to moderate atrophy. Cervix and vagina appear normal with mild atrophy. There is no unusual discharge. There is no evidence of prolapse. The uterus is midposition, nongravid size and nontender. There are no palpable adnexal masses or tenderness. RECTAL EXAM: Rectovaginal exam is negative for mass or tenderness and is negative for occult blood. EXTREMITIES: Nontender. IMPRESSION: 1. 77-year-old menopausal female with normal gynecologic exam. 2. History of left breast cancer status post lumpectomy, chemotherapy and radiation therapy, with no evidence of recurrence on exam today. 3. History of osteopenia status post 4 years use of Actonel, which was recently discontinued by her oncologist in October 2022. PLAN: 1. Pap smears have been discontinued. 2. Self breast awareness was discussed with the patient. We have also discussed symptoms associated with inflammatory breast cancer. 3. Bilateral diagnostic mammogram was done on 10/20/2022 and was benign. She will repeat this after 1 year. 4. Osteoporosis prevention was discussed. I have stressed the importance of adequate calcium, vitamin D and regular exercise. Recommended amounts of calcium and vitamin D were also discussed. Bone density test done on 10/10/2022 showed osteopenia with slight increases in bone density. The bone density test results were reviewed with the patient and a copy was given to the patient. We will plan on repeating this in approximately 2 years. 5. She was advised to return in one year for her annual well woman exam.
[2022-12-02 14:00] VITALS: BP 167/77; PULSE 78; RESP 17; TEMP 97.9
== END ==
LOC: WWCWWP 13:09
PROVIDERS: ATTEND Obstetrics & Gynecology
DX: Z01.419 Encounter for gynecological examination (general) (routine) without abnormal findings (principal); I10 Essential (primary) hypertension; M85.80 Other specified disorders of bone density and structure, unspecified site; Z85.828 Personal history of other malignant neoplasm of skin; Z78.0 Asymptomatic menopausal state; Z92.21 Personal history of antineoplastic chemotherapy; Z92.3 Personal history of irradiation; Z79.811 Long term (current) use of aromatase inhibitors; Z90.12 Acquired absence of left breast and nipple

== ENCOUNTER → 2023-10-22 | Outpatient (CLI) | payer MEDICARE ==
--- NOTE | 2023-10-26 13:15 | MM ---
Reason for Exam: Screening (asymptomatic). Last screening mammogram was performed 12 month(s) ago. Patient History: Menarche at age 15. First Full-Term at age 23. Postmenopausal. Breast cancer, left, age 72. Other cancer. Previous chest radiation therapy at age 72. Previous chemotherapy at age 72. 12/29/2017, Lumpectomy on the Left side. 03/07/2020, Benign Core Biopsy on the left side. 12/08/2018, Benign Core Biopsy on the right side. 12/29/2017, Malignant Core Biopsy on the left side. 12/07/2017, Malignant Core Biopsy on the left side. 2018, Chemotherapy. 2017, Radiation Therapy on the left side. Prior Study Comparison: 10/15/2020 Bilateral Diagnostic Mammogram, [facility]. 10/18/2021 Bilateral MG 3D diag mammo w/cad SARAH, [facility]. 10/20/2022 Bilateral MG 3D diag mammo w/cad SARAH, [facility]. Tissue Density: The breasts are heterogeneously dense, which may obscure small masses. Findings: Analyzed By CAD. Right breast biopsy clip. Right breast: There is no suspicious group of microcalcifications or new suspicious mass. Benign-appearing calcifications right breast. Left breast: There is no suspicious group of microcalcifications or new suspicious mass. Benign-appearing calcifications left breast. Overall Assessment: Negative, BI-RAD 1 Management: Screening Mammogram of both breasts in [address] [facility] will attempt to contact patient to return for supplemental views and ultrasound if indicated. Patient should continue monthly self-breast exams. A clinical breast exam by your physician is recommended on an annual basis. This exam should not preclude additional follow-up of suspicious palpable abnormalities. Note on Aida scores and lifetime risk: 1. A Aida score greater than 3% is considered moderate risk. If this is the case, consider specialist referral to assess eligibility for a risk reducing agent. 2. If overall lifetime risk for the development of breast cancer is 20% or higher, the patient may qualify for future screening with alternating mammogram and breast MRI. Electronically signed and approved by: Delfino Flores DO
== END | disposition home or self-care (01) ==
LOC: RADMAMWWP 09:47
PROVIDERS: ATTEND Internal Medicine Hematology & Oncology
DX: Z12.31 Encounter for screening mammogram for malignant neoplasm of breast (principal); Z78.0 Asymptomatic menopausal state; M85.9 Disorder of bone density and structure, unspecified; I10 Essential (primary) hypertension
CPT/HCPCS: 77063; 77067

== ENCOUNTER → 2024-10-11 | Outpatient (CLI) | payer MEDICARE ==
--- NOTE | 2024-10-11 11:14 | BD ---
EXAMINATION TYPE: Axial Bone Density DATE OF EXAM: 10/11/2024 CLINICAL HISTORY: 79 years old Female. ICD-10 CODE: M85.9 OSTEOPENIA , Additional History: Height: 5 ft 5 in Weight: 142 FRAX RISK QUESTIONS: Alcohol (3 or more units per day): no Family History (Parent hip fracture): no Glucocorticoids (More than 3mos): no (Ex: prednisone, prednisolone, methylprednisolone, dexamethasone, and hydrocortisone). History of Fracture in Adulthood: yes Secondary Osteoporosis: 1. Type 1 Diabetes: no 2. Hyperthyroidism: no 3. Menopause before 45: no 4. Malnutrition: no 5. Chronic liver disease: no Rheumatoid Arthritis: no Current Tobacco Use: no RISK FACTORS HISTORY OF: Surgery to Spine/Hip(right/left)/Wrist (right/left): no MEDICATIONS: Thyroid Medications: none Osteoporosis Medications: none now EXAM MEASUREMENTS: Bone mineral densitometry was performed using the [employer] System. Bone mineral density as measured about the Lumbar spine is: ----- L1-L4(G/cm2): 1.175 T Score Values are as follows: ----- L1: 0.4 ----- L2: -0.4 ----- L3: -0.4 ----- L4: 0.1 ----- L1-L4: 0.0 Z Score Values are as follows: ----- L1: 2.2 ----- L2: 1.4 ----- L3: 1.4 ----- L4: 1.9 ----- L1-L4: 1.8 Bone mineral density has: decreased -2.7 % since study of: 2022 Bone mineral density about the R hip (g/cm2): 0.703 Bone mineral density about the L hip (g/cm2): 0.814 T Score values are as follows: -----R Neck: -2.4 -----L Neck: -1.6 -----R Total: -2.1 -----L Total: -1.2 Z Score values are as follows: -----R Neck: -0.4 -----L Neck: 0.4 -----R Total: -0.2 -----L Total: 0.7 Bone mineral density has: decreased -2.2 % since study of: 2022 FRAX%s: The graph provided illustrates a 24.7 % chance for a major osteoporotic fx and a 7.8 % chance for the hips probability for fx in 10 years time. IMPRESSION: Osteopenia (T Score between -2.5 and -1) remains present. There is slightly increased risk of fracture and the patient may be considered for treatment. Re-Screen 2-5 years. NOTE: T-SCORE=SD OF THE YOUNG ADULT MEAN. [facility], , 10/11/2024 11:12 AM
== END | disposition home or self-care (01) ==
LOC: RADBDWWP 10:41
PROVIDERS: ATTEND Internal Medicine Hematology & Oncology
DX: C50.412 Malignant neoplasm of upper-outer quadrant of left female breast (principal); M85.89 Other specified disorders of bone density and structure, multiple sites; I10 Essential (primary) hypertension
CPT/HCPCS: 77080

== ENCOUNTER → 2024-11-03 | Outpatient (CLI) | payer MEDICARE ==
--- NOTE | 2024-11-03 11:39 | MM ---
Reason for Exam: Hx of breast cancer, conservation therapy. Last mammogram was performed 1 year(s) and 1 month(s) ago. Patient History: Menarche at age 15. First Full-Term at age 23. Postmenopausal. Breast cancer, left, age 72. Other cancer. Previous chest radiation therapy at age 72. Previous chemotherapy at age 72. 12/29/2017, Lumpectomy on the Left side. 03/07/2020, Benign Core Biopsy on the left side. 12/08/2018, Benign Core Biopsy on the right side. 12/29/2017, Malignant Core Biopsy on the left side. 12/07/2017, Malignant Core Biopsy on the left side. 2018, Chemotherapy. 2017, Radiation Therapy on the left side. Prior Study Comparison: 12/07/2017 Left Diagnostic Mammogram, [facility]. 12/02/2018 Bilateral Diagnostic Mammogram, [facility]. 12/08/2018 Right Diagnostic Mammogram, [facility]. 10/14/2019 Bilateral Diagnostic Mammogram, [facility]. 02/23/2020 Left Diagnostic Mammogram, [facility]. 03/07/2020 Left Diagnostic Mammogram, [facility]. 10/15/2020 Bilateral Diagnostic Mammogram, [facility]. 10/18/2021 Bilateral MG 3D diag mammo w/cad SARAH, [facility]. 10/20/2022 Bilateral MG 3D diag mammo w/cad SARAH, [facility]. 10/22/2023 Bilateral MG 3D screening mammo w/cad, [facility]. Tissue Density: The breasts are heterogeneously dense, which may obscure small masses. Findings: Analyzed By CAD. Postsurgical and posttreatment changes left breast. Microclip right breast from prior biopsy. Benign vascular and a few round/punctate calcification on the right are unchanged. There is no suspicious group of microcalcifications or new suspicious mass in either breast. Overall Assessment: Benign, BI-RAD 2 Management: Screening Mammogram of both breasts in 1 year. Patient should continue monthly self-breast exams. A clinical breast exam by your physician is recommended on an annual basis. This exam should not preclude additional follow-up of suspicious palpable abnormalities. Note on Aida scores and lifetime risk: 1. A Aida score greater than 3% is considered moderate risk. If this is the case, consider specialist referral to assess eligibility for a risk reducing agent. 2. If overall lifetime risk for the development of breast cancer is 20% or higher, the patient may qualify for future screening with alternating mammogram and breast MRI. [facility], , 11/03/2024 11:37 AM. Electronically signed and approved by: Jose Luis Justice M.D. Radiologist
== END | disposition home or self-care (01) ==
LOC: RADMAMWWP 09:23
PROVIDERS: ATTEND Internal Medicine Hematology & Oncology
DX: Z12.31 Encounter for screening mammogram for malignant neoplasm of breast (principal); R92.333 Mammographic heterogeneous density, bilateral breasts; Z78.0 Asymptomatic menopausal state; Z85.3 Personal history of malignant neoplasm of breast
CPT/HCPCS: 77063; 77067